=== PATIENT | male | born 1950 | race Caucasian/White ===

== ENCOUNTER 2022-05-23 00:41 | Emergency (ER) | payer OTHER, SELFPAY ==
[2022-05-23] VITALS (19 sets, daily range): BP systolic 164–226; BP diastolic 80–107; PULSE 45–55; TEMP 36.9; O2SAT 94–100; BMI 34.9
--- NOTE | 2022-05-23 01:03 | ED.GENADULT ---
HPI - General Adult General Chief complaint: Back Pain/Injury Stated complaint: KIDNEY STONE Time Seen by Provider: 05/23/22 00:47 Source: patient Mode of arrival: Ambulatory Limitations: no limitations History of Present Illness HPI narrative: Patient is a 71-year-old male who has had multiple kidney stones in the past who is here for evaluation of right-sided flank pain that he states is consistent with prior stone. He has had to have some sort of urologic intervention each time that he has had a stone in the past. His last on his approximately 9 years ago. His symptoms started within the past couple hours. No fevers. No urinary symptoms. No rashes. Pain not changed with palpation. No change in bowel habits. Related Data Previous Rx's Medication Instructions Recorded hydrocodone 5 mg-acetaminophen 325 1 tab PO Q4-6H PRN pain #14 tabs 05/23/22 mg tablet ondansetron 4 mg disintegrating 4 mg PO Q6H PRN nausea and 05/23/22 tablet vomiting #14 tabs tamsulosin 0.4 mg capsule (Flomax) 0.4 mg PO DAILY #14 caps 05/23/22 Allergies Allergy/AdvReac Type Severity Reaction Status Date / Time bee venom protein (honey bee) Allergy Verified 05/23/22 01:36 Review of Systems Constitutional Constitutional: Denies fever(s) Gastrointestinal Gastrointestinal: Reports system reviewed and no additional complaints, except as documented Genitourinary Genitourinary: Reports system reviewed and no additional complaints, except as documented Musculoskeletal Musculoskeletal: Reports system reviewed and no additional complaints, except as documented Integumentary/Breasts Skin/Breast: Reports system reviewed and no additional complaints, except as documented Hematologic/Lymphatic On Anticoagulants: No Patient History Medical History Kidney stones Social History Smoking Status: Former smoker Exam Initial Vital Signs Initial Vital Signs: Vital Signs Pulse Rate 52 L 05/23/22 00:51 Pulse Oximetry 99 05/23/22 00:51 HENMT Head: normal to inspection and normocephalic Resp Effort & Inspection: normal respiratory effort Cardio Rate: regular rate GI Inspection: normal to inspection Palpation: soft and No tender Back/Spine/Pelvis Back: No CVA tenderness Skin General: no rashes or lesions noted Neuro General: patient alert, patient awake and moves all extremities Extrem General: capillary refill normal Course Orders Ordered: ED Orders 05/23/22 01:00 Basic Metabolic Panel Stat Complete Blood Count AUTO DIFF Stat 05/23/22 02:20 CT kidney ureter bladder (KUB) Stat Discontinued Medications Hydrocodone Bitart/Acetaminophen (Hydrocodone/Acet 5/325 Prepack) 1 bottle MISC SEEINSTR ONE Stop: 05/23/22 04:37 Hydromorphone HCl (Hydromorphone 1 Mg Inj) 1 mg IV NOW ONE Stop: 05/23/22 01:04 Last Admin: 05/23/22 01:12 Dose: 1 mg Documented By: NR Ketorolac Tromethamine (Ketorolac 30 Mg/Ml Vial) 30 mg IV NOW ONE Stop: 05/23/22 01:04 Last Admin: 05/23/22 01:11 Dose: 30 mg Documented By: STERLING Ondansetron HCl (Ondansetron 4 Mg/2 Ml Inj) 4 mg IV NOW ONE Stop: 05/23/22 01:17 Last Admin: 05/23/22 01:24 Dose: 4 mg Documented By: STERLING Ondansetron HCl (Ondansetron 4 Mg Odt Prepack) 1 bottle MISC SEEINSTR ONE Stop: 05/23/22 04:37 Tamsulosin HCl (Tamsulosin 0.4 Mg Capsule) 0.4 mg PO NOW ONE Stop: 05/23/22 04:36 Vital Signs Vital signs: Vital Signs - 8 hr 05/23/22 00:51 05/23/22 00:54 05/23/22 00:54 Temperature Pulse Rate 52 L 52 L Blood Pressure 226/107 H Pulse Oximetry 99 99 Oxygen Delivery Method Oxygen Flow Rate 05/23/22 01:00 05/23/22 01:00 05/23/22 01:25 Temperature Pulse Rate 55 L Blood Pressure 213/99 H 197/102 H Pulse Oximetry 99 Oxygen Delivery Method Oxygen Flow Rate 05/23/22 01:25 05/23/22 01:30 05/23/22 01:30 Temperature Pulse Rate 47 L 46 L Blood Pressure 195/93 H Pulse Oximetry 95 97 Oxygen Delivery Method Nasal Cannula Oxygen Flow Rate 2 05/23/22 02:00 05/23/22 02:01 05/23/22 02:01 Temperature Pulse Rate 51 L 45 L Blood Pressure 189/86 H Pulse Oximetry 95 97 Oxygen Delivery Method Oxygen Flow Rate 05/23/22 02:30 05/23/22 02:31 05/23/22 02:31 Temperature Pulse Rate 48 L 45 L Blood Pressure 179/86 H Pulse Oximetry 98 95 Oxygen Delivery Method Oxygen Flow Rate 05/23/22 02:47 05/23/22 02:47 05/23/22 02:49 Temperature Pulse Rate 48 L Blood Pressure 207/94 H 212/92 H Pulse Oximetry 99 Oxygen Delivery Method Oxygen Flow Rate 05/23/22 02:49 05/23/22 02:51 05/23/22 02:51 Temperature Pulse Rate 48 L 48 L Blood Pressure 200/96 H Pulse Oximetry 98 97 Oxygen Delivery Method Oxygen Flow Rate 05/23/22 03:06 05/23/22 03:00 05/23/22 03:00 Temperature 98.5 F Pulse Rate 46 L Blood Pressure 193/84 H Pulse Oximetry 94 Oxygen Delivery Method Oxygen Flow Rate 05/23/22 03:30 05/23/22 03:31 05/23/22 03:31 Temperature Pulse Rate 47 L 48 L Blood Pressure 168/80 H Pulse Oximetry 100 100 Oxygen Delivery Method Nasal Cannula Nasal Cannula Oxygen Flow Rate 2 2 05/23/22 04:00 05/23/22 04:00 Temperature Pulse Rate 47 L Blood Pressure 181/88 H Pulse Oximetry 100 Oxygen Delivery Method Oxygen Flow Rate Medical Decision Making Lab Data Lab results reviewed: Yes I reviewed the patient's lab results. Result diagrams: 05/23/22 01:00 05/23/22 01:00 Labs: Lab Results 05/23/22 05/23/22 Range/Units 01:00 01:00 WBC 10.0 (4.5-11.0) X10^3/uL RBC 4.95 (4.5-5.9) X10^6/uL Hgb 15.4 (13.5-17.5) g/dL Hct 45.2 (41-53) % MCV 91.4 (80-100) fL MCH 31.1 (26-34) PG MCHC 34.0 (30-36) % RDW 13.1 (11.6-14.8) % Plt Count 209 (150-400) X10^3/uL Neut % (Auto) 53.3 (50-75) % Lymph % (Auto) 33.8 (25-40) % Stephens % (Auto) 8.2 (3-14) % Eos % (Auto) 3.9 (2-4) % Baso % (Auto) 0.8 (0-2) % Neut # (Auto) 5300 (4641-2204) /uL Lymph # (Auto) 3400 (4275-1183) /uL Stephens # (Auto) 800 (0-900) /uL Eos # (Auto) 400 (0-450) /uL Baso # (Auto) 100 (0-100) /uL Sodium 138 (137-145) mmol/L Potassium 4.3 (3.4-5.1) mmol/L Chloride 105 (98-107) mmol/L Carbon Dioxide 23 (22-32) mmol/L BUN 20 (9-20) mg/dL Creatinine 1.08 (0.66-1.25) mg/dL Estimated GFR > 60 (>60) mL/min BUN/Creatinine Ratio 18.5 (6-22) Glucose 108 (80-110) mg/dL Calcium 8.8 (8.4-10.2) mg/dL Urine Dip Bedside Urine Glucose Negative Bedside Urine Bilirubin - Negative Bedside Urine Ketone - Negative Urine Specific [place] 1.03 Bedside Urine Occult Blood - Negative Bedside Urine pH 6 Bedside Urine Protein - Negative Bedside Urine Urobilinogen - Negative Bedside Urine Nitrite - Negative Bedside Urine Leukocytes - Negative Esterase Point of care testing: Urine Dip Bedside Urine Glucose Negative Bedside Urine Bilirubin - Negative Bedside Urine Ketone - Negative Urine Specific [place] 1.03 Bedside Urine Occult Blood - Negative Bedside Urine pH 6 Bedside Urine Protein - Negative Bedside Urine Urobilinogen - Negative Bedside Urine Nitrite - Negative Bedside Urine Leukocytes - Negative Esterase Imaging Data CT scan - abdomen/pelvis: Radiologist's Impression: Moderate right hydronephrosis with obstructing proximal ureteral calculus measuring 8 mm Additional nonobstructing right staghorn calculus MDM Narrative Medical decision making narrative: No leukocytosis. Afebrile. Not tachycardic. Pain resolved with medications. Urinalysis has blood but no signs of urinary tract infection. Normal kidney function. CT scan does show large proximal ureteral calculus which does explain the symptoms he is having. Given his normal labs and no signs of infection in pain control will discharge home with Flomax and pain medication to see if he passes the stone on his own however he was given information to follow-up with urology. He was given return precautions. Patient also had periods of hypertension however this improve. He was instructed to follow-up with his primary doctor regarding this. Patient did spend an extended amount of time in the emergency department because after the pain medication when he would fall asleep. Become hypoxic. This was improved with oxygen by nasal cannula. This eventually resolved in the pain medication started to wear off. Patient expressed understanding and agreement with this plan. Discharge Plan Departure Patient Disposition: Home Clinical Impression: Renal colic Instructions: Kidney Stones -- Adult Prescriptions: New tamsulosin [Flomax] 0.4 mg capsule 0.4 mg PO DAILY Qty: 14 0RF hydrocodone-acetaminophen 5-325 mg tablet 1 tab PO Q4-6H PRN (Reason: pain) Qty: 14 0RF ondansetron 4 mg tablet,disintegrating 4 mg PO Q6H PRN (Reason: nausea and vomiting) Qty: 14 0RF Referrals: Niles Bellamy MD [Physician] -
[2022-05-23] MEDS: KETOROLAC 30 MG/ML VIAL IV (01:11)
[2022-05-23 01:12] LABS: Add Manual Diff / Slide Review NO; Basophils Absolute Auto 100 /uL (0-100); Basophils Percent Auto 0.8 % (0-2); Eosinophils Absolute Auto 400 /uL (0-450); Eosinophils Percent Auto 3.9 % (2-4); Hematocrit 45.2 % (41-53); Hemoglobin 15.4 g/dL (13.5-17.5); Lymphocytes Absolute Auto 3400 /uL (1100-4500); Lymphocytes Percent Auto 33.8 % (25-40); Mean Corpuscular Hemoglobin 31.1 PG (26-34); Mean Corpuscular Volume 91.4 fL (80-100); Monocytes Absolute Auto 800 /uL (0-900); Monocytes Percent Auto 8.2 % (3-14); Neutrophils Absolute Auto 5300 /uL (1500-7000); Neutrophils Percent Auto 53.3 % (50-75); Platelet Count 209 X10^3/uL (150-400); Red Blood Cell Count 4.95 X10^6/uL (4.5-5.9); Red Cell Distribution Width 13.1 % (11.6-14.8)
[2022-05-23] MEDS: HYDROMORPHONE 1 MG INJ IV (01:12)
[2022-05-23 01:18] LABS: BUN Creatinine Ratio 18.5 (6-22); Blood Urea Nitrogen 20 mg/dL (9-20); Calcium 8.8 mg/dL (8.4-10.2); Carbon Dioxide 23 mmol/L (22-32); Chloride 105 mmol/L (98-107); Estimated Glomerular Filt Rate > 60 mL/min (>60); Glucose 108 mg/dL (80-110); HEMOLYSIS < 15 (0-50); Potassium 4.3 mmol/L (3.4-5.1); Sodium 138 mmol/L (137-145)
[2022-05-23] MEDS: ONDANSETRON 4 MG/2 ML INJ IV (01:24)
--- NOTE | 2022-05-23 02:20 | DI.CT.S_ITS ---
PROCEDURE: CT KIDNEY URETER BLADDER (KUB) INDICATIONS: R side flank pain eval for stone TECHNIQUE: Axial sections were acquired from the lung bases to the pubic symphysis. Coronal and sagittal reformats were performed. For radiation dose reduction, the following was used: automated exposure control, adjustment of mA and/or kV according to patient size. COMPARISON: [facility], CT, KUB - CT (PNL), 01/06/2014, 13:47. FINDINGS: Image quality: Excellent. Lung bases: Unremarkable. Small hiatal hernia. Heart: Normal size. Mild coronary artery calcification. URINARY: Right Kidney: A 6 mm stone is seen at the right ureteropelvic junction demonstrating CT density 9064 HU. There is mild right hydronephrosis. A 10 x 16 mm nonobstructive stone in the superior pole of the right kidney demonstrating CT density 893 HU. Right Ureter: No stones or hydroureter. Left Kidney: No stones or hydronephrosis. Left Ureter: No stones or hydroureter. Bladder: Normal wall thickness. No stones. ABDOMEN: Liver: Normal size. Hepatic steatosis. Gallbladder: Unremarkable. Biliary ducts: Unremarkable. Pancreas: Unremarkable. Spleen: Unremarkable. Adrenal Glands: Unremarkable. Stomach and Bowel: Stomach, small bowel loops, and colon are normal in caliber. Diverticulosis. No diverticulitis. Peritoneum: No abnormal intraperitoneal fluid. No free air. Ventral Wall: No hernia. Abdominal Nodes: No enlarged retroperitoneal or mesenteric lymph nodes. Vessels: Aorta and inferior vena cava are normal in size. PELVIS: Pelvic Organs: Unremarkable. Pelvic Nodes: Unremarkable. Miscellaneous: No inguinal hernias are seen. Bones: Unremarkable. IMPRESSION: 1. There is a 6 mm obstructive stone at the right UPJ causing mild right hydronephrosis. 2. A 10 x 16 mm nonobstructive stone in the superior pole of the right kidney. 3. Diverticulosis without diverticulitis. 4. Hepatic steatosis. No significant discrepancy with the machinist 2nd shift radiology preliminary report. Dictated by: Amando Gonzalez M.D. on 05/23/2022 at 8:03 Approved by: Amando Gonzalez M.D. on 05/23/2022 at 8:10
--- NOTE | 2022-05-23 03:00 | PC.NURSE ---
Provider aware of pt elevated BP.
[2022-05-23] MEDS: ONDANSETRON 4 MG ODT PREPACK 1 BOTTLE MISC (04:45)
[2022-05-23] MEDS: TAMSULOSIN 0.4 MG CAPSULE PO (04:45)
[2022-05-23] MEDS: HYDROCODONE/ACET 5/325 PREPACK 1 BOTTLE MISC (04:45)
== END 2022-05-23 05:00 | disposition home or self-care (01) ==
PROVIDERS: Emergency Provider Emergency Medicine
DX: N23 Unspecified renal colic (principal); Z87.442 Personal history of urinary calculi
CPT/HCPCS: 36415; 74176; 80048; 81003; 85025; 96374; 96375; 99284; J1170; J1885; J2405

== ENCOUNTER → 2022-06-22 08:18 | Outpatient (CLI) | payer OTHER, SELFPAY ==
--- NOTE | 2022-06-22 08:20 | DI.RAD.S_ITS ---
PROCEDURE: XR KUB INDICATIONS: kidney stone TECHNIQUE: One view of the abdomen acquired. COMPARISON: [facility], CT, CT KIDNEY URETER BLADDER (KUB), 05/23/2022, 2:38. [facility], CR, KUB XRAY (1 VIEW ABDOMEN), 01/11/2014, 8:35. FINDINGS: Surgical changes and devices: None. Bowel: Scattered small bowel and colonic gas. No dilated loops of bowel seen. Soft tissues: Right kidney superior pole calculus measuring 1.2 cm. Calculus near the UPJ measuring 0.5 cm. The stones appear unchanged compared to CT KUB 05/23/2022. No suspicious abdominal calcifications. Visualized solid organ contours appear normal in size. Bones: No suspicious bony lesions. IMPRESSION: Right Kidney stones appears stable. Calculus at the right UPJ measuring 0.5 cm. Consider further evaluation with CT KUB or renal ultrasound to evaluate for worsening hydronephrosis. Dictated by: Parminder Garduno M.D. on 06/22/2022 at 9:44 Approved by: Parminder Garduno M.D. on 06/22/2022 at 9:46
[2022-06-22 10:47] LABS: Prostate Specific Antigen 0.254 ng/mL (0.10-4.00)
== END ==
PROVIDERS: Referring Provider Specialist; Visit Provider Specialist
DX: N20.2 Calculus of kidney with calculus of ureter (principal)
CPT/HCPCS: 36415; 74018; 84153

== ENCOUNTER → 2022-07-18 13:55 | Outpatient (CLI) | payer OTHER, SELFPAY ==
[2022-07-18 14:26] LABS: COVID19 -Nasal RAPID Negative (Negative)
== END ==
PROVIDERS: Visit Provider Specialist
DX: Z20.822 Contact with and (suspected) exposure to COVID-19 (principal)
CPT/HCPCS: 87635; C9803

== ENCOUNTER 2022-07-20 07:59 | Day surgery (SDC) | payer OTHER, SELFPAY ==
[2022-07-17 14:54] VITALS: BMI 33.9
[2022-07-20] VITALS (12 sets, daily range): BP systolic 103–168; BP diastolic 46–89; PULSE 44–62; RESP 10–20; TEMP 36.4–36.7; O2SAT 97–100; BMI 33.9
--- NOTE | 2022-07-20 | DI.RAD.S_ITS ---
PROCEDURE: XR KUB INDICATIONS: Right nephrolithiasis TECHNIQUE: One view of the abdomen acquired. COMPARISON: [facility], , XR KUB, 06/22/2022, 8:29. FINDINGS: Surgical changes and devices: None. Bowel: Bowel gas pattern is normal. Soft tissues: Stable appearance of 1.2 cm calcification projecting over the upper pole of the right renal shadow as well as 5 mm calcification projecting near the expected location of the right renal pelvis. No new calcifications noted. Visualized solid organ contours appear normal in size. Bones: No suspicious bony lesions. IMPRESSION: Stable radiographic appearance of 1.2 cm right upper pole renal stone as well as 5 mm calculus near the expected location of the right renal pelvis. Dictated by: Javi Key M.D. on 07/20/2022 at 11:26 Approved by: Javi Key M.D. on 07/20/2022 at 11:29
--- NOTE | 2022-07-20 08:18 | SUR.PREOP ---
0815-off unit to xray for KUB
[2022-07-20] MEDS: LACTATED RINGERS 1,000 ML 42 ML IV (08:33)
--- NOTE | 2022-07-20 08:47 | PM.PREOP ---
Pre-operative Note COVID-19 Criteria for continued procedure: Expected advancement of disease process, Possibility delay results in more complex future surgery or treatment, Deterioration of the patient's condition or overall health, Delay expected to result in less-positive ultimate med/surg outcome and Non-surgical alternatives not available or appropriate per current SOC Interval Note History & Physical reviewed/Exam performed by Physician: Yes Changes to H&P: No
[2022-07-20] MEDS: CEFAZOLIN 2 GM/100 ML PREMIX 100 ML IV (09:07)
--- NOTE | 2022-07-20 09:24 | SUR.OPER ---
Lithotomy on padded litotripsy frame bed, head on pillow, arms secured and gel padded at side at <90 degrees abduction. Legs secured in padded stirrups.
--- NOTE | 2022-07-20 10:02 | P.OP_ITS ---
Operative Date/Time/Diagnoses Date of procedure: 07/20/22 Time of procedure: 09:50 Pre-op diagnosis: 1. 6 mm right ureteropelvic junction calculus. 2. Intractable right renal colic. 3. 10 x 16 mm right upper pole renal calculus. Post-op diagnosis: same Procedure & Clinicians Procedure: 1. Cystoscopy/placement right ureteral stent (6 [place] by 22-32 cm multi- length). 2. Right extracorporeal shockwave lithotripsy (maximal power level 7.0 x1 1800 shocks). Same procedure as scheduled: Yes Indications: 1. 6 mm right ureteropelvic junction calculus. 2. Intractable right renal colic. 3. 10 x 16 mm right renal calculus. Surgeon: Niles Bellamy Click Yes if Unassisted: Yes Anesthesia Type: General Operative Notes Findings: 1. Urethra-relatively narrow caliber throughout the length with snug passage of 22 [place]anian panendoscope. No isolated stricture or lesion. 2. External sphincter-coapted with normal overlying urothelium. 3. Prostate-4 cm length with moderate lobe hyperplasia. 4. Bladder-1+ trabeculation. Normal ureteral orifices bilaterally. No evidence of stone, tumor, or diverticulum. 5. Preoperative KUB has demonstrated interval retrograde migration of the right ureteropelvic junction calculus into the right lower pole collecting system. The 10 x 16 mm right upper pole calculus remains unchanged in position compared to previous imaging. Closure Type: not applicable Specimen(s): none sent Applied: other (Six Tanzanian times 22-32 cm multi-length stent.) Estimated Blood Loss (mL): 0 Blood products transfused: none Procedure in detail: Patient was positioned supine was administered general anesthesia. He was then repositioned in semi lithotomy and the lower abdomen, genitalia, and groin were then prepped and draped in sterile fashion. The 22 [place] panendoscope was then passed lower urinary tract with the findings as described above. A 0.35 hybrid guidewire was then selected and advanced through the panendoscope advanced into the right collecting system under direct fluoroscopic guidance. Next, a 6 [place] by 22-32 cm multi-length stent was requested in was then advanced over the hybrid guidewire under direct and fluoroscopic guidance with satisfactory positioning in the right collecting system. NO RETRIEVAL LINE WAS LEFT ATTACHED. The bladder contents were then drained and the panendoscope was removed. Next, the 6 mm index calculus was then localized in the X, Y, and Z plane. Lithotripsy was then commenced at minimal power level and continued for 200 shocks at which point a 2 minute pause was conducted. Lithotripsy was then restarted and the power level was gradually increased to a maximum 7.0. The stone and its fragments were relocalized numerous times throughout the case. At 1800 shocks there was excellent radiographic evidence of stone comminution. Intraoperative decision to not begin fragmentation of the right upper calculus was made at that time. The patient was then repositioned in supine, was awakened, and then was transferred to [facility] for transport to PACU in stable condition. Complications: none Post-operative Condition: stable Disposition: PACU Plan for aftercare: Discharge home.
[2022-07-20] MEDS: FUROSEMIDE 20 MG/2 ML VIAL IV (10:17)
--- NOTE | 2022-07-20 10:21 | SUR.PHASEI ---
1015: Report received from QUITA Valenzuela
[2022-07-20] MEDS: ACETAMINOPHEN 325 MG TABLET 975 MG PO (11:04)
[2022-07-20] MEDS: OXYCODONE IR 5 MG TABLET PO (11:05)
[2022-07-20] MEDS: hydrOXYzine pamoate 25 MG CAPSULE PO (11:05)
[2022-07-20] MEDS: fentaNYL 100 MCG/2 ML INJ IV (11:28)
== END 2022-07-20 12:24 | disposition home or self-care (01) ==
PROVIDERS: Referring Provider Specialist; Visit Provider Specialist
PROC: (CPT 50590; principal; 2022-07-20 09:15)
PROC: (CPT 50590; 2022-07-20 09:15)
DX: N20.2 Calculus of kidney with calculus of ureter (principal)
CPT/HCPCS: 50590; 52332; 74018; 82962; J0690; J1100; J1940; J2250; J2405; J2704; J3010

== ENCOUNTER → 2022-07-31 07:58 | Outpatient (CLI) | payer OTHER, SELFPAY ==
--- NOTE | 2022-07-31 08:00 | DI.RAD.S_ITS ---
PROCEDURE: XR KUB INDICATIONS: Kidney stone TECHNIQUE: One view of the abdomen acquired. COMPARISON: [facility], CT, CT KIDNEY URETER BLADDER (KUB), 05/23/2022, 2:38. [facility], CR, XR KUB, 07/20/2022, 8:13. [facility], CR, XR KUB, 06/22/2022, 8:29. FINDINGS: Surgical changes and devices: Right double-J ureteral stent extending from the right renal pelvis to the midline pelvis. Bowel: Bowel gas pattern is normal. Soft tissues: Right kidney stone measuring 1.1 cm at the upper pole adjacent to the right ureteral stent. The previously seen 2nd stone at the inferior pole of the right kidney is no longer present. The right kidney appears enlarged. No suspicious abdominal calcifications. Bones: No suspicious bony lesions. IMPRESSION: Right kidney appears enlarged. Double-J right ureteral stent is now present. The previously seen smaller right kidney stone is no longer identified. Right kidney stone measuring 1.[address] abdomen pelvis with IV contrast for further evaluation if there is any concern for perinephric hematoma. Comment: Findings were discussed with Shannon in the office of Dr. keller at time of dictation. Dictated by: Parminder Garduno M.D. on 07/31/2022 at 9:43 Approved by: Parminder Garduno M.D. on 07/31/2022 at 10:10
== END ==
PROVIDERS: Referring Provider Specialist; Visit Provider Specialist
DX: N20.0 Calculus of kidney (principal); Z87.442 Personal history of urinary calculi; N20.1 Calculus of ureter
CPT/HCPCS: 74018

== ENCOUNTER → 2022-08-01 13:40 | Outpatient (CLI) | payer OTHER, SELFPAY ==
--- NOTE | 2022-08-01 13:42 | DI.CT.S_ITS ---
PROCEDURE: CT KIDNEY URETER BLADDER (KUB) INDICATIONS: Abnormal X-RAY TECHNIQUE: Axial sections were acquired from the lung bases to the pubic symphysis. Coronal and sagittal reformats were performed. For radiation dose reduction, the following was used: automated exposure control, adjustment of mA and/or kV according to patient size. COMPARISON: [facility], CR, XR KUB, 07/20/2022, 8:13. [facility] With [facility], CT, CT KIDNEY URETER BLADDER (KUB), 05/23/2022, 2:38. M[facility]ed With [facility], CR, XR KUB, 07/31/2022, 8:04. FINDINGS: Image quality: Excellent. Lung bases: Unremarkable. Heart: No significant findings. URINARY: Right Kidney: The right kidney is markedly enlarged and has a heterogeneous appearance suggesting a large perinephric hematoma. There is a moderate amount of right perinephric fat stranding which extends down the right pericolic gutter. Differentiation between the renal parenchyma and the perinephric hematoma is difficult on this noncontrast study. However, subtle high-density foci visualized within the posterior aspect of the midpole raise the suspicion for ongoing hemorrhage (series 2/image 45). No hydronephrosis. A nonobstructing staghorn calculus is present within the upper pole which measures 1.4 cm in diameter and approximately 630 Hounsfield units in density. There is a double-J ureteral stent which appears appropriately placed in the right renal pelvis. Right Ureter: The double-J stent extends down the ureter which is nondilated. There is mild right perinephric fat stranding. The distal aspect of the stent is placed within the bladder is expected. Left Kidney: The left kidney demonstrates normal size. No hydronephrosis or nephrolithiasis. Left Ureter: No hydroureter. Bladder: Normal wall thickness. No stones. ABDOMEN: Liver: Unremarkable. Gallbladder: Mildly contracted. Biliary ducts: Unremarkable. Pancreas: Unremarkable. Spleen: Unremarkable. Adrenal Glands: Unremarkable. Stomach and Bowel: Stomach, small bowel loops, and colon are unremarkable. The appendix is not visualized. There are scattered sigmoid diverticula. No evidence for diverticulitis. Peritoneum: No abnormal intraperitoneal fluid. No free air. Ventral Wall: No hernia. Abdominal Nodes: No enlarged retroperitoneal or mesenteric lymph nodes. Vessels: Aorta and inferior vena cava are normal in size. There are scattered atheromatous calcifications throughout the aorta and iliac arteries bilaterally. PELVIS: Pelvic Organs: Unremarkable. Pelvic Nodes: Unremarkable. Miscellaneous: There are small bilateral fat containing inguinal hernias. Bones: Unremarkable. IMPRESSION: 1. Findings most consistent with large perinephric hematoma. Focal high density region within the posterior aspect of the hematoma raises the suspicion for continued extravasation. 2. Nonobstructive right nephrolithiasis. 3. Perinephric fat stranding and fluid tracking along the paracolic gutter suggesting some extracapsular retroperitoneal hemorrhage. 4. Diverticulosis. No acute diverticulitis. These findings were discussed with Dr. Bellamy at 2:45 p.m. On August 01, 2022. Dictated by: Shantel Muñoz M.D. on 08/01/2022 at 14:34 Approved by: Shantel Muñoz M.D. on 08/01/2022 at 14:45
[2022-08-01 16:10] LABS: Hemoglobin 11.3 g/dL (13.5-17.5)
== END ==
PROVIDERS: Referring Provider Specialist; Visit Provider Specialist
DX: N20.2 Calculus of kidney with calculus of ureter (principal); K57.30 Diverticulosis of large intestine without perforation or abscess without bleeding; S37.019A Minor contusion of unspecified kidney, initial encounter; Z87.442 Personal history of urinary calculi
CPT/HCPCS: 36415; 74176; 85014; 85018

== ENCOUNTER → 2022-08-06 09:35 | Outpatient (CLI) | payer OTHER, SELFPAY ==
--- NOTE | 2022-08-06 09:36 | DI.CT.S_ITS ---
PROCEDURE: CT KIDNEY URETER BLADDER (KUB) INDICATIONS: Perinephric hematoma TECHNIQUE: Axial sections were acquired from the lung bases to the pubic symphysis. Coronal and sagittal reformats were performed. For radiation dose reduction, the following was used: automated exposure control, adjustment of mA and/or kV according to patient size. COMPARISON: [facility], CT, CT KIDNEY URETER BLADDER (KUB), 08/01/2022, 14:01. FINDINGS: Image quality: Excellent. Lung bases: Unremarkable. Heart: No significant findings. URINARY: Right Kidney: Large right perinephric hematoma is redemonstrated and appears similar in size to the comparison CT dated August 01, 2022. Nonobstructing calculi are redemonstrated at the upper pole and lower pole of the right kidney. Right double-J ureteral stent is unchanged. No hydronephrosis. Right Ureter: Right ureter is decompressed. Left Kidney: No stones or hydronephrosis. Left Ureter: No hydroureter. Bladder: Normal wall thickness. No stones. ABDOMEN: Liver: Unremarkable. Gallbladder: Unremarkable. Biliary ducts: Unremarkable. Pancreas: Unremarkable. Spleen: Unremarkable. Adrenal Glands: Unremarkable. Stomach and Bowel: Stomach, small bowel loops, and colon are unremarkable. There are scattered sigmoid diverticula. No evidence for diverticulitis. Peritoneum: Trace fluid is tracking along the right pericolic gutter, similar in extent to the prior study. No pneumoperitoneum. Ventral Wall: No hernia. Abdominal Nodes: No enlarged retroperitoneal or mesenteric lymph nodes. Vessels: Aorta and inferior vena cava are normal in size. There are scattered atheromatous calcifications throughout the aorta and iliac arteries bilaterally. PELVIS: Pelvic Organs: Unremarkable. Pelvic Nodes: Unremarkable. Miscellaneous: There are small bilateral fat containing inguinal hernias. Bones: Unremarkable. IMPRESSION: 1. Stable right perinephric hematoma when compared with the study dated August 01, 2022. 2. Nonobstructing right nephrolithiasis. No hydronephrosis or hydroureter. Double-J ureteral stent unchanged. Dictated by: Shantel Muñoz M.D. on 08/06/2022 at 10:15 Approved by: Shantel Muñoz M.D. on 08/06/2022 at 10:18
[2022-08-06 12:12] LABS: Hematocrit 35.5 % (41-53); Hemoglobin 12.2 g/dL (13.5-17.5)
== END ==
PROVIDERS: Referring Provider Specialist; Visit Provider Specialist
DX: S37.011A Minor contusion of right kidney, initial encounter (principal); N20.0 Calculus of kidney; K57.30 Diverticulosis of large intestine without perforation or abscess without bleeding; Z96.0 Presence of urogenital implants; Z87.442 Personal history of urinary calculi
CPT/HCPCS: 36415; 74176; 85014; 85018

== ENCOUNTER → 2022-08-13 07:51 | Outpatient (CLI) | payer OTHER, SELFPAY ==
[2022-08-13 08:07] LABS: Appearance Urine UA CLEAR; Bilirubin Urine UA NEGATIVE (NEGATIVE); Color Urine UA YELLOW; Glucose Urine UA NEGATIVE (Negative); Ketones Urine UA NEGATIVE (NEGATIVE); Leukocyte Esterase Urine UA 2+ (NEGATIVE); Nitrite Urine UA NEGATIVE (Negative); Occult Blood Urine UA 3+ (Negative); Protein Urine UA 1+ (Negative); Urobilinogen Urine UA 0.2 E.U./dL (0.2)
[2022-08-13 08:14] LABS: Amorphous Sediment Urine 1+; Bacteria Urine Moderate (10-30); Culture Indicated Urine Specimen Cultured; Mucus Urine 1+ (Negative); RBC Urine 5-10/HPF (0-5/HPF); Renal Epithelial Cells Urine 1-5/HPF (0-1/HPF); Squamous Epithelial Cell Urine 5-10 /HPF (0-5/HPF); Transitional Epi Cells Urine 1-5/HPF (0-5/HPF); WBC Urine 5-10/HPF (0-5/HPF)
== END ==
PROVIDERS: Visit Provider Specialist
DX: S37.019A Minor contusion of unspecified kidney, initial encounter; Z87.442 Personal history of urinary calculi; N20.2 Calculus of kidney with calculus of ureter; Z96.0 Presence of urogenital implants
CPT/HCPCS: 52310; 81001; 81002; 87077; 87086; 87186; 99213

== ENCOUNTER → 2022-10-09 10:54 | Outpatient (CLI) | payer OTHER, SELFPAY ==
--- NOTE | 2022-10-09 10:56 | DI.RAD.S_ITS ---
PROCEDURE: XR KUB INDICATIONS: Kidney stone TECHNIQUE: One view of the abdomen acquired. COMPARISON: [facility], CT, CT KIDNEY URETER BLADDER (KUB), 08/06/2022, 10:00. [facility], CR, XR KUB, 07/31/2022, 8:04. FINDINGS: Surgical changes and devices: Interval removal of right ureterovesicular stent. Bowel: Bowel gas pattern is normal. Soft tissues: Calcification overlying the right kidney is unchanged. Visualized solid organ contours appear normal in size. Bones: No suspicious bony lesions. IMPRESSION: Interval removal right ureterovesicular stent with stable calcification overlying the right kidney. Dictated by: Emily Chan M.D. on 10/09/2022 at 11:55 Approved by: Emily Chan M.D. on 10/09/2022 at 11:56
[2022-10-09 12:22] LABS: Calcium 9.5 mg/dL (8.4-10.2); Uric Acid 6.1 mg/dL (3.5-8.5)
[2022-10-11 23:25] LABS: Calcium 9.8 mg/dL (8.6-10.2); Parathyroid Hormone, Intact 33 pg/mL (15-65)
== END ==
PROVIDERS: Referring Provider Specialist; Visit Provider Specialist
DX: N20.0 Calculus of kidney (principal); N20.1 Calculus of ureter; S37.019A Minor contusion of unspecified kidney, initial encounter; Z87.442 Personal history of urinary calculi
CPT/HCPCS: 36415; 74018; 82310; 83970; 84550

== ENCOUNTER → 2023-01-14 08:20 | Outpatient (CLI) | payer OTHER, SELFPAY ==
--- NOTE | 2023-01-14 08:21 | DI.RAD.S_ITS ---
PROCEDURE: XR KUB INDICATIONS: Kidney stone TECHNIQUE: One view of the abdomen acquired. COMPARISON: [facility], CR, XR KUB, 10/09/2022, 10:57. [facility], CR, XR KUB, 07/31/2022, 8:04. FINDINGS: Surgical changes and devices: None. Bowel: Bowel gas pattern is normal. Soft tissues: Stable 1.5 cm right renal stone. Bones: No suspicious bony lesions. IMPRESSION: Stable 1.5 cm right renal stone. Dictated by: Rowdy Smalls M.D. on 01/14/2023 at 11:17 Approved by: Rowdy Smalls M.D. on 01/14/2023 at 11:19
== END ==
PROVIDERS: Referring Provider Specialist; Visit Provider Specialist
DX: N20.0 Calculus of kidney (principal)
CPT/HCPCS: 74018

== ENCOUNTER → 2023-06-24 12:32 | Outpatient (CLI) | payer OTHER, SELFPAY ==
--- NOTE | 2023-06-24 12:33 | DI.RAD.S_ITS ---
PROCEDURE: XR KUB INDICATIONS: kidney stones TECHNIQUE: One view of the abdomen acquired. COMPARISON: [facility], CR, XR KUB, 01/14/2023, 8:20. [facility], CR, XR KUB, 10/09/2022, 10:57. FINDINGS: Redemonstrated 1.3 centimeters stone projecting over the right mid kidney. No definite left renal stones identified. Nonobstructive bowel gas pattern. IMPRESSION: Redemonstrated 1.3 centimeter right renal stone. Dictated by: Ortega Griffin M.D. on 06/24/2023 at 17:37 Approved by: Ortega Griffin M.D. on 06/24/2023 at 17:40
== END ==
PROVIDERS: Referring Provider Specialist; Visit Provider Specialist
DX: N20.0 Calculus of kidney (principal)
CPT/HCPCS: 74018

== ENCOUNTER → 2024-02-03 07:54 | Outpatient (CLI) | payer OTHER, SELFPAY ==
--- NOTE | 2024-02-03 07:56 | DI.RAD.S_ITS ---
PROCEDURE: XR KUB INDICATIONS: calcium oxalate and uric acid stone TECHNIQUE: One view of the abdomen acquired. COMPARISON: [facility], CR, XR KUB, 06/24/2023, 12:40. FINDINGS: Surgical changes and devices: None. Bowel: Bowel gas pattern is normal. Soft tissues: No change in right renal calculus. Visualized solid organ contours appear normal in size. Bones: No suspicious bony lesions. IMPRESSION: No change in right renal calculus. Dictated by: Nenita Clark M.D. on 02/03/2024 at 10:21 Approved by: Nenita Clark M.D. on 02/03/2024 at 10:21
[2024-02-03 09:48] LABS: Prostate Specific Antigen 0.243 ng/mL (0.10-4.00)
== END ==
PROVIDERS: Referring Provider Specialist; Visit Provider Specialist
DX: N20.0 Calculus of kidney (principal); N20.1 Calculus of ureter; R97.20 Elevated prostate specific antigen [PSA]; S37.019A Minor contusion of unspecified kidney, initial encounter
CPT/HCPCS: 36415; 74018; 84153

== ENCOUNTER → 2024-06-10 14:14 | Outpatient (CLI) | payer OTHER, SELFPAY ==
[2024-06-10 14:44] LABS: Hematocrit 43.8 % (41-53)
[2024-06-10 15:12] LABS: BUN Creatinine Ratio 18.6 (6-22); Blood Urea Nitrogen 19 mg/dL (9-20); Calcium 8.7 mg/dL (8.4-10.2); Carbon Dioxide 24 mmol/L (22-32); Chloride 107 mmol/L (98-107); Estimated Glomerular Filt Rate > 60 mL/min (>60); Glucose 82 mg/dL (80-110); HEMOLYSIS < 15 (0-50); Potassium 4.3 mmol/L (3.4-5.1); Sodium 137 mmol/L (137-145)
[2024-06-10 15:49] LABS: Creatinine Urine Random 118.38 mg/dL
[2024-06-10 15:50] LABS: Protein (Total) Urine Random < 5 mg/dL (0-12); Protein Creatinine Ratio Urine 0.04 GRAM/24H
== END ==
LOC: LAB 14:15
PROVIDERS: Referring Provider Student in an Organized Health Care Education/Training Program; Visit Provider Student in an Organized Health Care Education/Training Program
DX: N05.9 Unspecified nephritic syndrome with unspecified morphologic changes (principal); D70.9 Neutropenia, unspecified; D63.1 Anemia in chronic kidney disease; R80.9 Proteinuria, unspecified
CPT/HCPCS: 36415; 80048; 82570; 84156; 85014; 85018

== ENCOUNTER → 2024-09-30 09:21 | Outpatient (CLI) | payer OTHER, SELFPAY ==
[2024-09-30 10:34] LABS: Hematocrit 44.3 % (41-53); Hemoglobin 15.1 g/dL (13.5-17.5)
[2024-09-30 11:26] LABS: BUN Creatinine Ratio 17.4 (6-22); Blood Urea Nitrogen 19 mg/dL (9-20); Calcium 9.5 mg/dL (8.4-10.2); Carbon Dioxide 28 mmol/L (22-32); Chloride 102 mmol/L (98-107); Estimated Glomerular Filt Rate > 60 mL/min (>60); Glucose 91 mg/dL (80-110); HEMOLYSIS < 15 (0-50); Potassium 4.3 mmol/L (3.4-5.1); Sodium 138 mmol/L (137-145)
[2024-09-30 11:37] LABS: Creatinine Urine Random 131.02 mg/dL; Protein (Total) Urine Random 14 mg/dL (0-12)
[2024-10-01 08:36] LABS: Parathyroid Hormone Int 35 pg/mL (15-65)
== END ==
LOC: LAB 09:23
PROVIDERS: Referring Provider Student in an Organized Health Care Education/Training Program; Visit Provider Student in an Organized Health Care Education/Training Program
DX: N05.9 Unspecified nephritic syndrome with unspecified morphologic changes (principal); D70.9 Neutropenia, unspecified; D63.1 Anemia in chronic kidney disease; R80.9 Proteinuria, unspecified; N25.81 Secondary hyperparathyroidism of renal origin
CPT/HCPCS: 36415; 80048; 82570; 83970; 84156; 85014; 85018

== ENCOUNTER 2025-01-25 10:59 | Emergency (ER) | payer OTHER, SELFPAY ==
[2025-01-25 11:23] VITALS: BP 183/87; PULSE 55; RESP 16; TEMP 36.8; O2SAT 99; BMI 33.9
[2025-01-25 11:52] LABS: Appearance Urine UA SL CLOUDY; Bilirubin Urine UA NEGATIVE (NEGATIVE); Color Urine UA YELLOW; Glucose Urine UA NEGATIVE (Negative); Ketones Urine UA NEGATIVE (NEGATIVE); Leukocyte Esterase Urine UA NEGATIVE (NEGATIVE); Nitrite Urine UA NEGATIVE (Negative); Occult Blood Urine UA 3+ (Negative); Protein Urine UA TRACE (Negative); Specific Gravity Urine UA 1.025 (1.000-1.035); Urobilinogen Urine UA 0.2 E.U./dL (0.2)
[2025-01-25 11:53] LABS: Urine Volume 10mL (spun)
[2025-01-25 11:54] LABS: RBC Urine 30-100/HPF (0-5/HPF)
[2025-01-25 11:55] LABS: Bacteria Urine None Seen; Culture Indicated Urine Cult Not Indicated; Squamous Epithelial Cell Urine 1-5 /HPF (0-5/HPF); WBC Urine 0-1/HPF (0-5/HPF)
--- NOTE | 2025-01-25 12:00 | ED_ITS ---
HPI - Male Genitourinary <Adriana Heller PA-C - Last Filed: 01/25/25 14:04> General Chief complaint: Urogenital-Male Stated complaint: bloon in urine Time Seen by Provider: 01/25/25 11:48 Source: patient Mode of arrival: Ambulatory History of Present Illness HPI Narrative: 74-year-old male with past medical history nephrolithiasis, BPH with urinary obstruction/LUTS presents to the ED with 1 day of hematuria, right-sided flank pain. Patient states that he has had 3-4 episodes of hematuria since 2:00 a.m. this morning. Endorses mild discomfort when urinating. Endorses right-sided flank pain. No fever, chills, chest pain, shortness of breath, nausea, vomiting, lightheadedness, dizziness, syncope. Patient does have a history of nephrolithiasis. Patient has had to have interventions such as stenting and lithotripsy in the past. Per a CT abdomen pelvis dated 08/01/2022, patient does have a right-sided nonobstructing staghorn calculus which was present within the upper pole measuring 1.4 cm in diameter and approximately 630 Hounsfield units in density. the right kidney was also markedly enlarged and had a heterogenous appearance suggesting a large perinephric hematoma. Patient is followed by Nephrology, patient last saw technical project coordinator 6 months ago. No imaging was done at that time. Patient has been prescribed tamsulosin and 1 other medicine that he does not know the name off. Patient states that he took the medications for awhile but stopped since he saw no changes. Related Data Previous Rx's Medication Instructions Recorded tamsulosin 0.4 mg capsule 0.4 mg PO ONCE PM #90 caps 03/18/24 Allergies Allergy/AdvReac Type Severity Reaction Status Date / Time bee venom protein (honey bee) Allergy Verified 08/08/23 07:59 Review of Systems <Adriana Heller PA-C - Last Filed: 01/25/25 14:04> Constitutional Constitutional: Denies chills, Denies fatigue, Denies fever(s), Denies frequent falls, Denies lethargy and Denies weakness Eyes Eyes: Denies change in vision, Denies eye discharge, Denies irritation and Denies loss of vision ENT Ears, Nose, Mouth, and Throat: Denies change in voice, Denies dizziness, Denies neck pain, Denies sore throat and Denies throat swelling Cardiovascular Cardiovascular: Denies chest pain, Denies irregular heart rhythm, Denies lightheadedness, Denies palpitations, Denies dyspnea, Denies dyspnea on exertion and Denies orthopnea Respiratory Respiratory: Denies cough, Denies dyspnea, Denies dyspnea on exertion and Denies wheezing Gastrointestinal Gastrointestinal: Denies abdominal pain, Denies change in bowel habits, Denies diarrhea, Denies nausea and Denies vomiting Genitourinary Genitourinary: Reports hematuria and Reports dysuria Comments: right-sided flank pain Musculoskeletal Musculoskeletal: Denies neck pain and Denies numbness Integumentary/Breasts Skin/Breast: Denies pruritus, Denies erythema, Denies rash and Denies wounds Neurologic Neurologic: Denies behavioral changes, Denies confusion, Denies dizziness, Denies frequent falls, Denies loss of vision, Denies numbness and Denies weakness Psychiatric Psychiatric: Denies anxiety, Denies behavioral changes, Denies confusion, Denies depression, Denies homicidal ideation and Denies suicidal ideation Endocrine Endocrine: Denies fatigue, Denies flushing and Denies palpitations Hematologic/Lymphatic Hematologic/Lymphatic: Denies easy bruising Allergic/Immunologic Allergic/Immunologic: Denies urticaria, Denies throat swelling and Denies wheezing Patient History <Adriana Heller PA-C - Last Filed: 01/25/25 14:04> Medical History BPH w urinary obs/LUTS Renal calculus, right History of kidney stones Surgical History Hx of appendectomy History of urologic surgery Social History household members: spouse Smoking Status: Former smoker alcohol intake: current Smoking Status: Former smoker tobacco type: cigarettes alcohol intake frequency: holidays/special occasions only Exam <Adriana Heller PA-C - Last Filed: 01/25/25 14:04> Narrative Exam Narrative: Const General:?cooperative, healthy appearing and comfortable [facility] Head:?normal to inspection Ears:?hearing grossly normal bilaterally Nose:?external nose normal Face and sinus:?normal facial exam and sinuses nontender Mouth:?oral mucosae normal Throat:?posterior oropharynx normal Eyes General:?appearance normal, both eyes and all related structures Neck Neck:?normal visual inspection and no lymphadenopathy noted Resp Effort & Inspection:?normal respiratory effort Auscultation:?clear to auscultation bilaterally Cardio Rate:?regular rate Rhythm:?regular rhythm GI Abdomen is soft, nondistended, nontender to palpation. There is significant right-sided CVA tenderness. Neuro General:?patient alert, patient awake and patient oriented x3 Initial Vital Signs Initial Vital Signs: Vital Signs Temperature 98.2 F 01/25/25 11:23 Pulse Rate 55 L 01/25/25 11:23 Respiratory Rate 16 01/25/25 11:23 Blood Pressure 183/87 H 01/25/25 11:23 Pulse Oximetry 99 01/25/25 11:23 Oxygen Delivery Method Room Air 01/25/25 11:23 <Wseley Roach MD - Last Filed: 01/25/25 20:45> Initial Vital Signs Initial Vital Signs: Vital Signs Temperature 98.2 F 01/25/25 11:23 Pulse Rate 55 L 01/25/25 11:23 Respiratory Rate 16 01/25/25 11:23 Blood Pressure 183/87 H 01/25/25 11:23 Pulse Oximetry 99 01/25/25 11:23 Oxygen Delivery Method Room Air 01/25/25 11:23 Course <Adriana Heller PA-C - Last Filed: 01/25/25 14:04> Orders Ordered: ED Orders 01/25/25 12:12 CT abdomen pelvis w con Stat 01/25/25 12:50 CBC Auto Diff [Complete Blood Count AUTO DIFF] Stat CMP [Comprehensive Metabolic Panel] Stat Lipase Stat PT [Prothrombin Time INR] Stat PTT Partial Thromboplastin Chuckie Stat Vital Signs Vital signs: Vital Signs - 8 hr 01/25/25 14:00 Temperature 98 F Pulse Rate 81 Respiratory Rate 18 Blood Pressure 167/80 H Pulse Oximetry 97 Oxygen Delivery Method Room Air <Wesley Roach MD - Last Filed: 01/25/25 20:45> Orders Ordered: ED Orders 01/25/25 12:12 CT abdomen pelvis w con Stat 01/25/25 12:50 CBC Auto Diff [Complete Blood Count AUTO DIFF] Stat CMP [Comprehensive Metabolic Panel] Stat Lipase Stat PT [Prothrombin Time INR] Stat PTT Partial Thromboplastin Chuckie Stat Vital Signs Vital signs: Vital Signs - 8 hr 01/25/25 14:00 Temperature 98 F Pulse Rate 81 Respiratory Rate 18 Blood Pressure 167/80 H Pulse Oximetry 97 Oxygen Delivery Method Room Air MDM - Male Genitourinary <Adriana Heller PA-C - Last Filed: 01/25/25 14:04> Lab Data 01/25/25 12:50 01/25/25 12:50 Labs: Lab Results 01/25/25 01/25/25 Range/Units 11:25 12:50 WBC 8.3 (4.5-11.0) X10^3/uL RBC 4.81 (4.5-5.9) X10^6/uL Hgb 15.4 (13.5-17.5) g/dL Hct 44.2 (41-53) % MCV 92.0 (80-100) fL MCH 32.0 (26-34) PG MCHC 34.7 (30-36) % RDW 13.3 (11.6-14.8) % Plt Count 222 (150-400) X10^3/uL Neut % (Auto) 48.3 L (50-75) % Lymph % (Auto) 40.5 H (25-40) % [place] % (Auto) 7.3 (3-14) % Eos % (Auto) 3.0 (2-4) % Baso % (Auto) 0.9 (0-2) % Neut # (Auto) 4000 (3648-2839) /uL Lymph # (Auto) 3400 (0772-1445) /uL [place] # (Auto) 600 (0-900) /uL Eos # (Auto) 200 (0-450) /uL Baso # (Auto) 100 (0-100) /uL PT 10.6 (9.4-12.5) SECONDS INR 0.9 (0.9-1.3) APTT 36 (25.1-36.5) SECONDS Sodium 138 (137-145) mmol/L Potassium 4.6 (3.4-5.1) mmol/L Chloride 105 (98-107) mmol/L Carbon Dioxide 30 (22-32) mmol/L BUN 12 (9-20) mg/dL Creatinine 1.15 (0.66-1.25) mg/dL Estimated GFR > 60 (>60) mL/min BUN/Creatinine Ratio 10.4 (6-22) Glucose 87 (80-110) mg/dL Calcium 9.2 (8.4-10.2) mg/dL Total Bilirubin 0.9 (0.2-1.3) mg/dL AST 31 (17-59) IU/L ALT 31 (<50) IU/L Alkaline Phosphatase 64 (38-126) U/L Total Protein 7.8 (6.3-8.2) g/dL Albumin 4.2 (3.5-5.0) g/dL Globulin 3.6 (1.7-4.1) g/dL Albumin/Globulin Ratio 1.2 (1.0-2.8) Lipase 99 (23-300) U/L Urine Color Yellow Urine Appearance Sl cloudy Urine pH 7.0 (4.5-8.0) Ur Specific [place] 1.025 (1.000-1.035) Urine Protein Trace H (Negative) Urine Glucose (UA) Negative (Negative) g/dL Urine Ketones Negative (NEGATIVE) Urine Occult Blood 3+ H (Negative) Urine Nitrate Negative (Negative) Urine Bilirubin Negative (NEGATIVE) Urine Urobilinogen 0.2 (0.2) E.U./dL Ur Leukocyte Esterase Negative (NEGATIVE) Urine RBC 30-100/hpf H (0-5/HPF) Urine WBC 0-1/hpf (0-5/HPF) Ur Squamous Epith Cells 1-5 /hpf (0-5/HPF) Urine Bacteria None seen (None) Ur Culture Indicated? Cult not indicated Vol Urine Centrifuged 10ml (spun) MDM Narrative Medical decision making narrative: 74-year-old male with past medical history nephrolithiasis, BPH with urinary obstruction/LUTS presents to the ED with 1 day of hematuria, right-sided flank pain. Concern for UTI versus pyelonephritis versus nephrolithiasis versus malignancy versus BPH versus other intra-abdominal pathology versus other. Will obtain labs, UA, CT abdomen pelvis. Patient declines pain medications at this time. Will reassess. Labs within normal limits. H&H is stable UA shows hematuria, negative for UTI. CT abdomen pelvis shows a nonobstructing 1.3 cm right-sided nephrolithiasis. There is an enhancing, polypoid a left-sided bladder mass measuring 2.[address] Alexander from Urology was consulted. He will see him in clinic for cystoscopy and further evaluation. Safe to discharge as long as he is able to completely void. Postvoid residual was measured at 3 mL. Patient is safe for discharge. Discussed findings with patient, And that Dr. Alexander's office will contact him for follow-up. ED return precautions were discussed with patient. Patient verbalized understanding. Medical records reviewed: Yes <Wesley Roach MD - Last Filed: 01/25/25 20:45> Lab Data Labs: Lab Results 01/25/25 01/25/25 Range/Units 11:25 12:50 WBC 8.3 (4.5-11.0) X10^3/uL RBC 4.81 (4.5-5.9) X10^6/uL Hgb 15.4 (13.5-17.5) g/dL Hct 44.2 (41-53) % MCV 92.0 (80-100) fL MCH 32.0 (26-34) PG MCHC 34.7 (30-36) % RDW 13.3 (11.6-14.8) % Plt Count 222 (150-400) X10^3/uL Neut % (Auto) 48.3 L (50-75) % Lymph % (Auto) 40.5 H (25-40) % [place] % (Auto) 7.3 (3-14) % Eos % (Auto) 3.0 (2-4) % Baso % (Auto) 0.9 (0-2) % Neut # (Auto) 4000 (4164-2473) /uL Lymph # (Auto) 3400 (2835-7204) /uL [place] # (Auto) 600 (0-900) /uL Eos # (Auto) 200 (0-450) /uL Baso # (Auto) 100 (0-100) /uL PT 10.6 (9.4-12.5) SECONDS INR 0.9 (0.9-1.3) APTT 36 (25.1-36.5) SECONDS Sodium 138 (137-145) mmol/L Potassium 4.6 (3.4-5.1) mmol/L Chloride 105 (98-107) mmol/L Carbon Dioxide 30 (22-32) mmol/L BUN 12 (9-20) mg/dL Creatinine 1.15 (0.66-1.25) mg/dL Estimated GFR > 60 (>60) mL/min BUN/Creatinine Ratio 10.4 (6-22) Glucose 87 (80-110) mg/dL Calcium 9.2 (8.4-10.2) mg/dL Total Bilirubin 0.9 (0.2-1.3) mg/dL AST 31 (17-59) IU/L ALT 31 (<50) IU/L Alkaline Phosphatase 64 (38-126) U/L Total Protein 7.8 (6.3-8.2) g/dL Albumin 4.2 (3.5-5.0) g/dL Globulin 3.6 (1.7-4.1) g/dL Albumin/Globulin Ratio 1.2 (1.0-2.8) Lipase 99 (23-300) U/L Urine Color Yellow Urine Appearance Sl cloudy Urine pH 7.0 (4.5-8.0) Ur Specific [place] 1.025 (1.000-1.035) Urine Protein Trace H (Negative) Urine Glucose (UA) Negative (Negative) g/dL Urine Ketones Negative (NEGATIVE) Urine Occult Blood 3+ H (Negative) Urine Nitrate Negative (Negative) Urine Bilirubin Negative (NEGATIVE) Urine Urobilinogen 0.2 (0.2) E.U./dL Ur Leukocyte Esterase Negative (NEGATIVE) Urine RBC 30-100/hpf H (0-5/HPF) Urine WBC 0-1/hpf (0-5/HPF) Ur Squamous Epith Cells 1-5 /hpf (0-5/HPF) Urine Bacteria None seen (None) Ur Culture Indicated? Cult not indicated Vol Urine Centrifuged 10ml (spun) Discharge Plan Departure Patient Disposition: Home Clinical Impression: Hematuria Qualifiers: Hematuria type: gross Qualified Code(s): R31.0 - Gross hematuria Instructions: DI for Hematuria Activity Restrictions/Additional Instructions: You were evaluated in the ED today for blood in the urine. The CT scan does show a left-sided bladder mass. We consulted urologist Dr. Alexander, who will call you to schedule you for a cystoscopy and further evaluation. Please continue to monitor your symptoms and return to the ED if your symptoms worsen, or you are unable to urinate. If you do not hear from Urology in the next few days, you may call them at [phone]. Prescriptions: No Action tamsulosin 0.4 mg capsule 0.4 mg PO ONCE PM Qty: 90 3RF Stand Alone Forms: Patient Portal/API/Survey ED Sign-out <Wesley Roach MD - Last Filed: 01/25/25 20:45> Sign Out Provider Sign Out Attestation: I was immediately available in the department for consultation. This documentation has been reviewed and I agree with assessment and plan. Supervised by Wesley Roach MD
--- NOTE | 2025-01-25 12:12 | DI.CT.S_ITS ---
PROCEDURE: CT ABDOMEN PELVIS W CON INDICATIONS: hematuria, R flank pain, hx of nephrolithiasis TECHNIQUE: After the administration of intravenous contrast, axial sections acquired from the lung bases to the pubic symphysis. Coronal and sagittal reformats were performed. For radiation dose reduction, the following was used: automated exposure control, adjustment of mA and/or kV according to patient size. COMPARISON: None. FINDINGS: Image quality: Diagnostic. Lower Chest: No significant findings. Bulky coronary calcifications. ABDOMEN: Liver: No solid mass. Gallbladder: Contracted, without stones. Biliary ducts: No biliary dilation. Pancreas: No ductal dilation. Spleen: Size is within normal limits. Adrenal Glands: No adrenal nodules. Kidneys and Ureters: No hydronephrosis. No solid mass. No complex renal cystic lesion which requires follow up. Nonobstructing 1.3 centimeter right-sided nephrolithiasis. Stomach and Bowel: Normal colonic caliber, without significant wall thickening. Colonic diverticulosis without evidence of diverticulitis. Appendix not visualized. Peritoneum: No abnormal intraperitoneal fluid. No free air. Central mesenteric fat stranding without adenopathy, likely indicating a benign process. Ventral Wall: No significant ventral hernia. Abdominal Nodes: No retroperitoneal or mesenteric adenopathy by size criteria. Vessels: Aorta and inferior vena cava are normal in size. PELVIS: Pelvic Organs: Unremarkable. Bladder: Enhancing, polypoidal left-sided bladder mass measuring 2.1 x 1.7 centimeters, without extension beyond the muscle. Pelvic Nodes: No enlarged lymph nodes. Miscellaneous: No inguinal hernias are seen. Bones: No aggressive osseous abnormality. IMPRESSION: 2.1 x 1.7 centimeter left sided bladder mass. Recommend confirmation with urology referral /cystoscopy. Nonobstructing right-sided nephrolithiasis measuring 1.3 centimeters, without hydronephrosis. Dictated by: Rowdy Smalls M.D. on 01/25/2025 at 13:15 Approved by: Rowdy Smalls M.D. on 01/25/2025 at 13:17
[2025-01-25 13:03] LABS: Add Manual Diff / Slide Review NO; Basophils Absolute Auto 100 /uL (0-100); Basophils Percent Auto 0.9 % (0-2); Eosinophils Absolute Auto 200 /uL (0-450); Hematocrit 44.2 % (41-53); Hemoglobin 15.4 g/dL (13.5-17.5); Lymphocytes Absolute Auto 3400 /uL (1100-4500); Lymphocytes Percent Auto 40.5 % (25-40); Mean Corpuscular HGB Conc 34.7 % (30-36); Monocytes Absolute Auto 600 /uL (0-900); Monocytes Percent Auto 7.3 % (3-14); Neutrophils Absolute Auto 4000 /uL (1500-7000); Neutrophils Percent Auto 48.3 % (50-75); Platelet Count 222 X10^3/uL (150-400); Red Blood Cell Count 4.81 X10^6/uL (4.5-5.9); Red Cell Distribution Width 13.3 % (11.6-14.8); White Blood Cell Count 8.3 X10^3/uL (4.5-11.0)
[2025-01-25 13:13] LABS: INR 0.9 (0.9-1.3); Prothrombin Time 10.6 SECONDS (9.4-12.5)
[2025-01-25 13:16] LABS: Alanine Aminotransferase 31 IU/L (<50); Albumin 4.2 g/dL (3.5-5.0); Albumin Globulin Ratio 1.2 (1.0-2.8); Alkaline Phosphatase 64 U/L (38-126); Aspartate Aminotransferase 31 IU/L (17-59); BUN Creatinine Ratio 10.4 (6-22); Bilirubin Total 0.9 mg/dL (0.2-1.3); Blood Urea Nitrogen 12 mg/dL (9-20); Calcium 9.2 mg/dL (8.4-10.2); Carbon Dioxide 30 mmol/L (22-32); Chloride 105 mmol/L (98-107); Estimated Glomerular Filt Rate > 60 mL/min (>60); Globulin 3.6 g/dL (1.7-4.1); Glucose 87 mg/dL (80-110); HEMOLYSIS < 15 (0-50); Lipase 99 U/L (23-300); PTT Partial Thromboplastin Tim 36 SECONDS (25.1-36.5); Potassium 4.6 mmol/L (3.4-5.1); Sodium 138 mmol/L (137-145); Total Protein 7.8 g/dL (6.3-8.2)
[2025-01-25 14:00] VITALS: BP 167/80; PULSE 81; RESP 18; TEMP 36.6; O2SAT 97
== END 2025-01-25 14:00 | disposition home or self-care (01) ==
PROVIDERS: Emergency Provider Student in an Organized Health Care Education/Training Program
DX: R31.0 Gross hematuria (principal); R10.9 Unspecified abdominal pain; R30.0 Dysuria; Z87.442 Personal history of urinary calculi
CPT/HCPCS: 36415; 51798; 74177; 80053; 81001; 83690; 85025; 85610; 85730; 99283; 99284; Q9967

== ENCOUNTER → 2025-02-04 09:27 | Outpatient (CLI) | payer OTHER, SELFPAY | PROVIDERS: Visit Provider Urology | DX: N40.1 Benign prostatic hyperplasia with lower urinary tract symptoms (principal); N13.8 Other obstructive and reflux uropathy; R31.0 Gross hematuria; N32.89 Other specified disorders of bladder; Z87.442 Personal history of urinary calculi | CPT/HCPCS: 52000; 81002; 87086 ==

== ENCOUNTER → 2025-02-15 16:14 | Outpatient (CLI) | payer OTHER, SELFPAY | PROVIDERS: Visit Provider Urology | DX: N40.1 Benign prostatic hyperplasia with lower urinary tract symptoms (principal); N13.8 Other obstructive and reflux uropathy | CPT/HCPCS: 87077; 87086; 87147; 87186 ==

== ENCOUNTER 2025-02-26 07:52 | Day surgery (SDC) | payer OTHER, SELFPAY ==
[2025-02-22 12:50] VITALS: BMI 33.9
--- NOTE | 2025-02-26 | DI.RAD.S_ITS ---
PROCEDURE: XR ABDOMEN 1V INDICATIONS: left stent placement TECHNIQUE: Single spot intra-operative image acquired by the Urology service. COMPARISON: None. FINDINGS: Partial opacification of the left renal pelvis and proximal aspect of ureteral stent identified. IMPRESSION: Partial visualization of contrast opacified nondilated left renal pelvis and proximal aspect of left ureteral stent. Dictated by: Dexter Duvall M.D. on 02/27/2025 at 1:57 Approved by: Dexter Duvall M.D. on 02/27/2025 at 1:59
--- NOTE | 2025-02-26 | PATH_ITS ---
[facility] Accession Number: [id number] No. of containers..01 Tissue . 01 Material submitted: . bladder - BLADDER TUMOR . 01 Diagnosis: BLADDER TUMOR, TRANSURETHRAL RESECTION: Invasive high-grade papillary urothelial carcinoma. Extensive lamina propria invasion. Lymphovascular invasion is not identified. Muscularis propria: Not identified in the sample submitted. MRV 03/04/2025 1148 Local . 01 Comment: As part of ongoing ict quality assurance engineer, this case is also reviewed by Dr. Ag Syed, who agrees with the interpretation. . 01 Electronically signed: . Irish Garcia MD, Pathologist NPI- [id number] . 01 Gross description: . BLADDER TUMOR: Received in formalin are multiple fragment(s) of hammer, soft tissue measuring 0.1 x 0.1 x 0.1 cm to 1.0 x 0.5 x 0.3 cm submitted entirely in 4 cassette(s) /JACOB 03/01/2025 2218 Local . 01 Pathologist provided ICD-10: C67.9 . 01 CPT . 043435 Specimen Comment: A courtesy copy of this report has been sent to [facility] Pathology Performed at: 01 [facility] [address], [place], [place] [id number] MD Edwin Barney MD Phone: [phone]
[2025-02-26 08:18] VITALS: BP 150/90; PULSE 68; RESP 16; TEMP 36.3; O2SAT 97; BMI 34.2
[2025-02-26] MEDS: LACTATED RINGERS 1,000 ML 42 ML IV (08:21)
--- NOTE | 2025-02-26 08:23 | PM.PREOP ---
Pre-operative Note COVID-19 COVID-19 status: Not tested Interval Note History & Physical reviewed/Exam performed by Physician: Yes Changes to H&P: No
[2025-02-26] MEDS: levoFLOXacin 500 MG/100 ML PIGGYBACK 100 MG IV (08:45)
--- NOTE | 2025-02-26 09:00 | SUR.OPER ---
Lithotomy on padded OR bed, head on pillow, arms secured on padded arm boards at <90 degrees abduction. Legs secured in padded yellow fins stirrups.
[2025-02-26] MEDS: METHYLENE BLUE 50 MG/10 ML VIAL IV (09:27)
[2025-02-26] MEDS: iopamidoL 30 ML VIAL INJ (10:09)
--- NOTE | 2025-02-26 10:28 | P.OP_ITS ---
Operative Date/Time/Diagnoses Pre-op diagnosis: Bladder mass Post-op diagnosis: same Procedure & Clinicians Procedure: Cystoscopy Transurethral resection of bladder tumor Left retrograde ureteropyelogram Left ureteral stent placement Intraoperative interpretation of fluoroscopic images, total time < 1 hour Same procedure as scheduled: Yes Indications: 74 y/o M w/ recent episode of gross hematuria who was noted to have an unremarkable CT IVP and a cystoscopy notable for a 2cm bladder mass immediately lateral to his left ureteral orifice in January of 2025 Surgeon: Kwaku Alexander Click Yes if Unassisted: Yes Anesthesia Type: General Operative Notes Findings: 2cm bladder mass overlying left ureteral orifice, placement of a left ureteral stent Closure Type: not applicable Specimen(s): other (bladder mass) Applied: catheter Estimated Blood Loss (mL): 2 Blood products transfused: none Procedure in detail: Patient was identified in the preoperative holding area and consent confirmed. He was then brought to the operating room where general anesthesia was induced. He was then placed in the low lithotomy position. He was then prepped and draped in the usual sterile fashion. A surgical timeout was conducted and all were in agreement. Access to the bladder was obtained via a 21Fr cystoscope. Complete cystoscopy was then performed using a 30 and 70 degree lens. A 2cm papillary mass was noted overlying his left ureteral orifice. The right ureteral orifice was noted to be orthotopic in nature. No other concerning lesions were appreciated. The cystoscope was then removed and his urethral meatus was serially dilated using [place] sounds from 22Fr to 30Fr. The 26Fr resectoscope with visual obturator was then advanced through his urethra and into his bladder. The working element with Gyrus loop was then assembled and passed through the resectoscope and into the bladder. The mass was then resected to its base. The resection bed was then minimally fulgurated while attempts were made to locate the left ureteral orifice. Methylene blue was given intraoperatively, unfortunately, the left ureteral orifice was never noted to be efflux. After more than 30 minutes of searching, it was finally located. The resectoscope was removed and the cystoscope was readvanced into his urethra and bladder. The left ureteral orifice was then easily cannulated using a 5Fr ureteral catheter over a 0.035 sensor tip ureteral guidewire. The guidewire was removed and a left retrograde ureteropyelogram was performed which noted unremarkable left renal and ureteral architecture. The guidewire was then readvanced through the ureteral catheter and into the left renal pelvis. The ureteral catheter was removed and a 6Fr multi-length JJ ureteral stent was advanced over the guidewire and into the left renal pelvis. Upon removal of the ureteral guidewire, a good curl was noted within the left renal pelvis upon fluoroscopy and visually within the bladder. The cystoscope was then removed and the resectoscope was readvanced into the bladder. The resection bed was then extensively fulgurated. Hemostasis was evaluated at case end and noted to be excellent. The resectoscope was then removed and an 18Fr bailey catheter was easily inserted through his urethra and into his bladder. 10cc of sterile water was utilized for balloon insufflation. Anesthesia was reversed, he was extubated in the OR and transferred to the PACU in stable condition for recovery. Complications: none Post-operative Condition: stable Disposition: PACU Plan for aftercare: Discharge home from PACU. Will return to Urology clinic on 02 March 2025 to have his bailey catheter removed.
[2025-02-26 10:29] VITALS: BP 156/82; PULSE 78; RESP 21; TEMP 36.6; O2SAT 94
[2025-02-26 10:34] VITALS: BP 179/92; PULSE 78; RESP 16; O2SAT 94
[2025-02-26 10:40] VITALS: BP 150/94; PULSE 79; RESP 14; O2SAT 95
[2025-02-26 10:55] VITALS: BP 173/85; PULSE 66; RESP 14; O2SAT 96
[2025-02-26 11:05] VITALS: BP 172/84; PULSE 66; RESP 14; O2SAT 97
== END 2025-02-26 11:41 | disposition home or self-care (01) ==
PROVIDERS: Referring Provider Urology; Visit Provider Urology
PROC: 0TBB8ZZ Excision of Bladder, Via Natural or Artificial Opening Endoscopic (ICD-10-PCS; CPT 52235; principal; 2025-02-26 09:15)
DX: C67.9 Malignant neoplasm of bladder, unspecified (principal)
CPT/HCPCS: 52235; 52351; 74018; 74420; 76000; C2617; J1100; J1956; J2405; J2704; J3010; Q9967; Q9968

== ENCOUNTER → 2025-03-02 15:08 | Outpatient (CLI) | payer OTHER, SELFPAY ==
[2025-03-02 16:08] LABS: Appearance Urine UA CLEAR; Bilirubin Urine UA NEGATIVE (NEGATIVE); Color Urine UA YELLOW; Glucose Urine UA NEGATIVE (Negative); Ketones Urine UA NEGATIVE (NEGATIVE); Leukocyte Esterase Urine UA NEGATIVE (NEGATIVE); Nitrite Urine UA NEGATIVE (Negative); Occult Blood Urine UA 3+ (Negative); Protein Urine UA 3+ (Negative); Specific Gravity Urine UA >=1.030 (1.000-1.035); Urobilinogen Urine UA 0.2 E.U./dL (0.2)
[2025-03-02 16:25] LABS: Bacteria Urine Few (2-10); Culture Indicated Urine Specimen Cultured; RBC Urine 30-100/HPF (0-5/HPF); Squamous Epithelial Cell Urine 1-5 /HPF (0-5/HPF); Transitional Epi Cells Urine 0-1/HPF (0-5/HPF); Urine Volume 10mL (spun); WBC Urine 10-30/HPF (0-5/HPF)
== END ==
PROVIDERS: Visit Provider Urology
DX: N40.1 Benign prostatic hyperplasia with lower urinary tract symptoms (principal); N13.8 Other obstructive and reflux uropathy
CPT/HCPCS: 51798; 81001; 87086

== ENCOUNTER → 2025-03-18 08:20 | Outpatient (CLI) | payer OTHER, SELFPAY | PROVIDERS: Visit Provider Urology | DX: N40.1 Benign prostatic hyperplasia with lower urinary tract symptoms (principal); N13.8 Other obstructive and reflux uropathy | CPT/HCPCS: 87086 ==

== ENCOUNTER 2025-04-02 07:53 | Day surgery (SDC) | payer OTHER, SELFPAY ==
[2025-03-24 08:50] VITALS: BMI 33.2
--- NOTE | 2025-04-02 | PATH_ITS ---
[facility] Accession Number: [id number] No. of containers..02 Tissue . 01 Material submitted: . PART A: bladder - BLADDER MASS PART B: body - DEEP MARGIN . 01 Clinical history: . 5-29 PER MAUREEN, OR VOCATIONAL REHABILITATION SPECIALIST, SITE B IS DEEP MARGIN /RR . 01 Diagnosis: A. BLADDER MASS, EXCISION: Polypoid fragments of urothelial mucosa with acute and chronic inflammation, congestion, and granulation tissue. See comment. . B. DEEP MARGIN: Urothelial mucosa with acute and chronic inflammation, congestion and granulation tissue. Muscularis propria is identified. No dysplasia and no malignancy. MRV 04/12/2025 1423 Local . 01 Comment: A. There is focal mild atypia noted which is favored to be reactive in nature. There is no evidence of malignancy. Muscularis propria is not present in part A. As part of ongoing software quality manager, part A is also reviewed by Dr. Ag Syed, who agrees with the interpretation. . 01 Electronically signed: . Irish Garcia MD, Pathologist NPI- [id number] . 01 Gross description: . A. Received in formalin with two identifiers and bladder mass, are five irregular hammer soft tissue fragments ranging from 0.4 x 0.4 x 0.2 cm to 0.7 x 0.5 x 0.3 cm. The fragments are submitted intact in A1. B. Received in formalin with two identifiers and deep margin, is a single hammer soft tissue fragment, 1.1 x 0.4 x 0.3 cm. The slightly concave surface is inked black while the slightly convex surface is inked orange, and the fragment is submitted intact in B1. ([id number]) /MRV 04/07/2025 2136 Local . 01 Microscopic: . CK20 highlights umbrella cells and p53 is negative for strong and diffuse overexpression. Controls stain appropriately. . * This test was developed and the performance characteristics were validated by [facility]. It has not been cleared or approved by the U.S. Food and Drug Administration. . 01 Pathologist provided ICD-10: Z85.51 . 01 CPT . 951521, 945549, D04767, W40131 Specimen Comment: A courtesy copy of this report has been sent to [facility] Pathology Performed at: [address] [id number] MD Edwin Barney MD Phone: [phone]
[2025-04-02 08:10] VITALS: BP 157/76; PULSE 65; RESP 16; TEMP 36.2; O2SAT 97; BMI 33.2
[2025-04-02] MEDS: LACTATED RINGERS 1,000 ML 21 ML IV (08:19)
[2025-04-02] MEDS: ACETAMINOPHEN IV 1,000 MG/100 ML VIAL 400 MG IV (08:32)
--- NOTE | 2025-04-02 08:38 | PM.PREOP ---
Pre-operative Note COVID-19 COVID-19 status: Not tested Interval Note History & Physical reviewed/Exam performed by Physician: Yes Changes to H&P: No
[2025-04-02] MEDS: CEFAZOLIN 2 GM/100 ML PREMIX 100 ML IV (08:53)
--- NOTE | 2025-04-02 09:04 | SUR.OPER ---
Lithotomy on padded OR bed, head on pillow, arms secured on padded arm boards at <90 degrees abduction. Legs secured in padded yellow fins stirrups.
[2025-04-02 09:42] VITALS: BP 162/86; PULSE 79; RESP 25; TEMP 36.3; O2SAT 93
--- NOTE | 2025-04-02 09:43 | PM.OP.1 ---
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 His mass was overlying his left ureteral orifice which was stented at the conclusion of his procedure. Discussed that per AUA guidelines, he is high-risk and should undergo a repeat TURBT. Surgeon: Kwaku Alexander Click Yes if Unassisted: Yes Anesthesia Type: General Operative Notes Findings: Bullous edema around left ureteral orifice, no overt mass appreciated Closure Type: not applicable Specimen(s): other (bladder mass, deep margin) Estimated Blood Loss (mL): 2 Blood products transfused: none Procedure in detail: Patient was identified in the preoperative holding area and consent confirmed. He was then brought to the operating room where general anesthesia was induced. He was then placed in the low lithotomy position. He was then prepped and draped in the usual sterile fashion. A surgical timeout was conducted and all were in agreement. Access to the bladder was obtained via a 21Fr cystoscope. Complete cystoscopy was then performed using a 30 and 70 degree lens. No concerning masses or lesions were noted. The previously placed left ureteral stent was easily visualized and bullous edema was appreciated around his left ureteral orifice, no overt mass was noted. The cystoscope was then removed and his urethral meatus was serially dilated using Carlos sounds from 22Fr to 30Fr. The 26Fr resectoscope with visual obturator was then advanced through his urethra and into his bladder. The working element with Gyrus loop was then assembled and passed through the resectoscope and into the bladder. The aforementioned bullous edema and area of the original mass was resected and submitted as bladder mass. A deep margin was also taken from this site as well and submitted as separate specimen. The resection bed was then extensively fulgurated. Hemostasis was evaluated at case end and noted to be excellent. His bladder was then drained and his cystoscope was removed. Anesthesia was reversed, he was extubated in the OR and transferred to the PACU in stable condition for recovery. Complications: none Post-operative Condition: stable Disposition: PACU Plan for aftercare: Discharge home from PACU. Will return to Urology clinic to discuss his pathology results as soon as they return.
[2025-04-02 09:49] VITALS: BP 134/71; PULSE 71; RESP 12; O2SAT 96
[2025-04-02 09:53] VITALS: BP 147/80; PULSE 69; RESP 12; O2SAT 96
[2025-04-02] MEDS: PHENAZOPYRIDINE 100 MG TABLET 200 MG PO (09:53)
[2025-04-02 09:57] VITALS: BP 135/76; PULSE 66; RESP 10; O2SAT 95
[2025-04-02 10:05] VITALS: BP 137/80; PULSE 64; RESP 12; TEMP 36.3; O2SAT 94
[2025-04-02] MEDS: OXYBUTYNIN 5 MG TABLET PO (10:21)
== END 2025-04-02 10:37 | disposition home or self-care (01) ==
PROVIDERS: Referring Provider Urology; Visit Provider Urology
PROC: 0TBB8ZZ Excision of Bladder, Via Natural or Artificial Opening Endoscopic (ICD-10-PCS; CPT 52224; principal; 2025-04-02 09:15)
DX: N40.1 Benign prostatic hyperplasia with lower urinary tract symptoms (principal); N13.8 Other obstructive and reflux uropathy; R35.1 Nocturia; Z87.891 Personal history of nicotine dependence; Z87.442 Personal history of urinary calculi
CPT/HCPCS: 52224; J0131; J0690; J2405; J2704; J3010

== ENCOUNTER 2025-05-04 21:21 | Emergency (ER) | payer OTHER, SELFPAY ==
[2025-05-04] VITALS (7 sets, daily range): BP systolic 158–182; BP diastolic 78–95; PULSE 58–73; RESP 18; TEMP 36.6; O2SAT 95–98; BMI 32.8
[2025-05-04 21:59] LABS: Urine Volume 10mL (spun)
[2025-05-04 22:00] LABS: Bacteria Urine Few (2-10); Culture Indicated Urine Specimen Cultured; RBC Urine 1-5/HPF (0-5/HPF); Squamous Epithelial Cell Urine 0-1 /HPF (0-5/HPF); WBC Urine 30-100/HPF (0-5/HPF)
[2025-05-04 22:52] LABS: Add Manual Diff / Slide Review NO; Basophils Absolute Auto 100 /uL (0-100); Eosinophils Absolute Auto 200 /uL (0-450); Hematocrit 38.7 % (41-53); Hemoglobin 13.7 g/dL (13.5-17.5); Lymphocytes Absolute Auto 2800 /uL (1100-4500); Lymphocytes Percent Auto 23.3 % (25-40); Mean Corpuscular HGB Conc 35.5 % (30-36); Mean Corpuscular Hemoglobin 31.8 PG (26-34); Mean Corpuscular Volume 89.7 fL (80-100); Monocytes Absolute Auto 900 /uL (0-900); Monocytes Percent Auto 7.2 % (3-14); Neutrophils Absolute Auto 8000 /uL (1500-7000); Neutrophils Percent Auto 66.5 % (50-75); Platelet Count 288 X10^3/uL (150-400); Red Blood Cell Count 4.31 X10^6/uL (4.5-5.9); Red Cell Distribution Width 12.9 % (11.6-14.8)
--- NOTE | 2025-05-04 22:54 | ED.GENADULT ---
HPI - General Adult General Chief complaint: Urogenital-Male Stated complaint: Back Pain Time Seen by Provider: 05/04/25 22:44 Source: patient Mode of arrival: Ambulatory History of Present Illness HPI narrative: 74-year-old male with history of kidney stones with previous lithotripsy procedures, last lithotripsy 2 years ago by retired urologist Dr. Mojica here at [facility], more recently has diagnosis of bladder cancer, status post bladder stenting and initial tumor excision by local urologist Dr. Alexander, awaiting follow up procedure BCG insertion on 10:00 a.m. here with possible removal of bladder stent at that same procedure. Now complains of 2 weeks duration of intermittent left-sided flank discomfort, worse for the last 4 days. Some nausea without vomiting. No fevers or chills. No diarrhea, no black or red stools. He does not take blood thinner medications. Related Data Home Medications ?Medication ?Instructions ?Recorded ?Confirmed amlodipine 5 mg tablet 5 mg PO DAILY 02/26/25 04/02/25 Previous Rx's ?Medication ?Instructions ?Recorded tamsulosin 0.4 mg capsule 0.4 mg PO ONCE PM #90 caps 03/18/24 levofloxacin 500 mg tablet 500 mg PO DAILY #5 tabs 02/26/25 oxybutynin chloride 5 mg tablet 5 mg PO TID PRN bladder spasms #10 02/26/25 tabs oxycodone 5 mg tablet 5 mg PO Q8H PRN pain (scale score 02/26/25 7-10) #7 tabs cefdinir 300 mg capsule 300 mg PO BID 10 days #14 caps 05/05/25 Allergies Allergy/AdvReac Type Severity Reaction Status Date / Time bee venom protein (honey bee) Allergy Verified 05/04/25 21:25 Patient History Medical History (Updated 05/05/25 @ 01:43 by Wesley Roach MD) HTN (hypertension) BPH w urinary obs/LUTS Renal calculus, right History of kidney stones Surgical History (Updated 03/24/25 @ 09:17 by Ivania Montero RN) H/O transurethral resection of bladder tumor (TURBT) (02/26/25) Hx of appendectomy History of urologic surgery Social History household members: spouse Smoking Status: Former smoker alcohol intake: current Smoking Status: Former smoker tobacco type: cigarettes alcohol intake frequency: holidays/special occasions only Exam Narrative Exam Narrative: GENERAL: Well-developed patient, in mild distress. HEAD: Atraumatic. Normocephalic. EYES: Pupils equal round and reactive. Extraocular motions intact. No scleral icterus. No injection or drainage. ENT: Nose without bleeding, purulent drainage. Throat without erythema, tonsillar hypertrophy or exudate. Airway patent. NECK: Trachea midline. Non tender CARDIOVASCULAR: Regular rate and rhythm without murmurs, gallops, or rubs. RESPIRATORY: Clear to auscultation. Breath sounds equal bilaterally. No wheezes, rales, or rhonchi. GASTROINTESTINAL: Abdomen soft, non-tender, nondistended. EXTREMITIES: No edema or joint tenderness. BACK: Nontender without deformity or crepitance. No flank tenderness. NEURO: AOx3. Motor functions grossly nonfocal. SKIN: No rash or erythema of visible areas Initial Vital Signs Initial Vital Signs: Vital Signs Temperature 98 F 05/04/25 21:25 Pulse Rate 73 05/04/25 21:25 Respiratory Rate 18 05/04/25 21:25 Blood Pressure 158/87 H 05/04/25 21:25 Pulse Oximetry 97 05/04/25 21:25 Oxygen Delivery Method Room Air 05/04/25 21:25 Course Orders Ordered: ED Orders 05/04/25 21:30 Urine Culture Stat Urine Microscopic Stat 05/04/25 22:00 Complete Blood Count AUTO DIFF Stat Comprehensive Metabolic Panel Stat Lipase Stat 05/04/25 23:48 CT abdomen pelvis wo con Stat Ondansetron HCl (Ondansetron 4 Mg/2 Ml Inj) 4 mg IV NOW PRN PRN Reason: Nausea And Vomiting Ondansetron HCl (Ondansetron 4 Mg Odt) 4 mg PO NOW PRN PRN Reason: Nausea And Vomiting Discontinued Medications Cefdinir (Cefdinir 300 Mg Capsule) 300 mg PO NOW ONE Stop: 05/05/25 01:42 Ceftriaxone Sodium 1,000 mg/ (Sodium Chloride) 100 mls @ 200 mls/hr IV NOW ONE Stop: 05/04/25 23:05 Last Infusion: 05/04/25 23:47 Dose: Infused Documented By: Admin: 05/04/25 23:12 Dose: 200 mls/hr Documented By: MAU Ketorolac Tromethamine (Ketorolac 30 Mg/Ml Vial) 15 mg IV NOW ONE Stop: 05/04/25 23:05 Last Admin: 05/04/25 23:12 Dose: 15 mg Documented By: MAU Vital Signs Vital signs: Vital Signs - 8 hr 05/04/25 21:25 05/04/25 21:50 05/04/25 22:00 Temperature 98 F Pulse Rate 73 64 Respiratory Rate 18 Blood Pressure 158/87 H 182/95 H Pulse Oximetry 97 96 Oxygen Delivery Method Room Air 05/04/25 22:00 05/04/25 22:30 05/04/25 22:31 Temperature Pulse Rate 66 62 Respiratory Rate Blood Pressure 170/79 H Pulse Oximetry 97 95 Oxygen Delivery Method 05/04/25 22:31 05/04/25 23:00 05/04/25 23:00 Temperature Pulse Rate 61 65 Respiratory Rate Blood Pressure 165/88 H Pulse Oximetry 95 98 Oxygen Delivery Method Room Air 05/04/25 23:30 05/04/25 23:30 05/05/25 00:00 Temperature Pulse Rate 58 L Respiratory Rate Blood Pressure 164/78 H 166/82 H Pulse Oximetry 97 Oxygen Delivery Method 05/05/25 00:00 05/05/25 00:30 05/05/25 01:00 Temperature Pulse Rate 61 58 L 57 L Respiratory Rate Blood Pressure Pulse Oximetry 97 96 98 Oxygen Delivery Method Medical Decision Making Lab Data Lab results reviewed: Yes I reviewed the patient's lab results. Lab results narrative: White blood cell count 78770, hemoglobin 13.7, platelets adequate. Glucose 110. BUN 18 with creatinine 1.27. Normal serum CO2. Sodium 135 with normal potassium 3.9. Liver functions normal. Lipase normal. Urinalysis with some pyuria and little bacteria, urine culture triggered. 05/04/25 22:00 05/04/25 22:00 Labs: Lab Results 05/04/25 05/04/25 Range/Units 21:30 22:00 WBC 12.0 H (4.5-11.0) X10^3/uL RBC 4.31 L (4.5-5.9) X10^6/uL Hgb 13.7 (13.5-17.5) g/dL Hct 38.7 L (41-53) % MCV 89.7 (80-100) fL MCH 31.8 (26-34) PG MCHC 35.5 (30-36) % RDW 12.9 (11.6-14.8) % Plt Count 288 (150-400) X10^3/uL Neut % (Auto) 66.5 (50-75) % Lymph % (Auto) 23.3 L (25-40) % [place] % (Auto) 7.2 (3-14) % Eos % (Auto) 2.0 (2-4) % Baso % (Auto) 1.0 (0-2) % Neut # (Auto) 8000 H (4892-8230) /uL Lymph # (Auto) 2800 (9917-9205) /uL [place] # (Auto) 900 (0-900) /uL Eos # (Auto) 200 (0-450) /uL Baso # (Auto) 100 (0-100) /uL Sodium 135 L (137-145) mmol/L Potassium 3.9 (3.4-5.1) mmol/L Chloride 104 (98-107) mmol/L Carbon Dioxide 24 (22-32) mmol/L BUN 18 (9-20) mg/dL Creatinine 1.27 H (0.66-1.25) mg/dL Estimated GFR > 60 (>60) mL/min BUN/Creatinine Ratio 14.2 (6-22) Glucose 110 H (70-99) mg/dL Calcium 8.5 (8.4-10.2) mg/dL Total Bilirubin 0.6 (0.2-1.3) mg/dL AST 28 (17-59) IU/L ALT 29 (<50) IU/L Alkaline Phosphatase 80 (38-126) U/L Total Protein 7.4 (6.3-8.2) g/dL Albumin 3.7 (3.5-5.0) g/dL Globulin 3.7 (1.7-4.1) g/dL Albumin/Globulin Ratio 1.0 (1.0-2.8) Lipase 88 (23-300) U/L Urine RBC 1-5/hpf D (0-5/HPF) Urine WBC 30-100/hpf H (0-5/HPF) Ur Squamous Epith Cells 0-1 /hpf (0-5/HPF) Urine Bacteria Few (2-10) H (None) Ur Culture Indicated? Specimen cultured Vol Urine Centrifuged 10ml (spun) Urine Dip Bedside Urine Glucose Negative Bedside Urine Bilirubin - Negative Bedside Urine Ketone - Negative Urine Specific [place] 1.020 Bedside Urine Occult Blood +++ Bedside Urine pH 6 Bedside Urine Protein + 30 Bedside Urine Urobilinogen - Negative Bedside Urine Nitrite + Positive Bedside Urine Leukocytes +++ 500 Esterase Point of care testing: Urine Dip Bedside Urine Glucose Negative Bedside Urine Bilirubin - Negative Bedside Urine Ketone - Negative Urine Specific [place] 1.020 Bedside Urine Occult Blood +++ Bedside Urine pH 6 Bedside Urine Protein + 30 Bedside Urine Urobilinogen - Negative Bedside Urine Nitrite + Positive Bedside Urine Leukocytes +++ [address] scan - abdomen/pelvis: Radiologist's Impression: [address] [address] [address] Scan Report Signed Patient: Nam Pina MR#: [id number] : 1950 Acct:[id number] Age/Sex: 74 / M Date of Service: 05/04/25 Loc: ED Accession Number: [id number] Procedure: CT abdomen pelvis wo con Ordering Provider: Wesley Roach MD PROCEDURE: CT ABDOMEN PELVIS WO CON INDICATIONS: flank pain L, hx stones, hx bladder CA/stent TECHNIQUE: Axial sections were acquired from the lung bases to the pubic symphysis. Coronal and sagittal reformats were performed. For radiation dose reduction, the following was used: automated exposure control, adjustment of mA and/or kV according to patient size. COMPARISON: [facility], CT, CT ABDOMEN PELVIS W CON, 01/25/2025, 12:58. FINDINGS: Image quality: Diagnostic. Lower Chest: No significant findings. URINARY: Right Kidney: Unchanged nonobstructing calcification. Right Ureter: No hydroureter. Left Kidney: Ureterovesicular stent with minimal to mild hydronephrosis. Left Ureter: No hydroureter. Bladder: Normal wall thickness. No stones. Previous luminal mass is not seen on current exam. ABDOMEN: Liver: No contour-deforming solid mass. Steatosis. Gallbladder: No radiopaque gallstones or wall thickening. Biliary ducts: No biliary dilation. Pancreas: No ductal dilation. Spleen: Size is within normal limits. Adrenal Glands: No adrenal nodules. Stomach and Bowel: Normal colonic caliber, without significant wall thickening. Scattered diverticula without inflammatory change. Peritoneum: No abnormal intraperitoneal fluid. No free air. Ventral Wall: No hernia. Abdominal Nodes: No enlarged retroperitoneal or mesenteric lymph nodes. Vessels: Aorta and inferior vena cava are normal in size. PELVIS: Pelvic Organs: Unremarkable. Pelvic Nodes: Unremarkable. Miscellaneous: No inguinal hernias are seen. Bones: Unremarkable. IMPRESSION: No obstructing stones. Left ureterovesicular stent with mild appearance hydronephrosis. Dictated by: Emily Chan M.D. on 05/05/2025 at 1:02 Approved by: Emily Chan M.D. on 05/05/2025 at 1:05 [facility] Narrative Medical decision making narrative: 74-year-old male with history of kidney stones prior lithotripsies, last lithotripsy 2 years ago, more recently has diagnosis bladder cancer, motor stent placed local urologist Dr. Alexander, bladder excision mass removed, another noncancerous mass apparently removed in March, awaiting BCG placement surgery with possible bladder stent removal in 2 days 10:[address] Alexander. Now with 2 weeks duration left flank pain, increasing last couple of days, further increased today. He does not want opiate medication. Willing to have IV Toradol which was ordered. Upcoming surgical intervention, we will CT abdomen and pelvis to help surgical planning. Patient and in agreement. Keep NPO. Lab data: White blood cell count 46895, hemoglobin 13.7, platelets adequate. Glucose 110. BUN 18 with creatinine 1.27. Normal serum CO2. Sodium 135 with normal potassium 3.9. Liver functions normal. Lipase normal. Urinalysis with some pyuria and little bacteria, urine culture triggered. Feels better after pain medication given. IV Ceftriaxone for UTI coverage. CT abdomen and pelvis. Shows no obstructing stones. Left ureterovesicular stent in place with mild hydronephrosis appearance. See radiology report. Urinalysis suspicious for infection, triggered urine culture by protocol. We will give oral cefdinir dose, sent prescription to their pharmacy. Follow up with Urology in 2 days as planned. Discharged home with . Discharge Plan Departure Patient Disposition: Home Clinical Impression: Urinary tract infection Activity Restrictions/Additional Instructions: History of previous kidney stones. More recent diagnosis of bladder cancer status post bladder stenting and mass excisions, awaiting next procedure in 2 days with local urologist, for likely BCG treatment and bladder stent removal procedure. Urinalysis tonight suspicious for infection, IV ceftriaxone antibiotic given. CT scan did not show any kidney stones blocking either ureter at this time to explain any discomfort. Left-sided ureterovesicular stent was in place. We will give further antibiotics for treatment of urinary tract infection. Contact your urologist to let him know about urine infection if that should change the trajectory of your surgery on Saturday or not. Return earlier to this/nearest emergency department for any change worsening symptoms or any concerns prior. Prescriptions: New cefdinir 300 mg capsule 300 mg PO BID 10 Days Qty: 14 0RF No Action amlodipine 5 mg tablet 5 mg PO DAILY levofloxacin 500 mg tablet 500 mg PO DAILY Qty: 5 0RF oxycodone 5 mg tablet 5 mg PO Q8H PRN (Reason: pain (scale score 7-10)) Qty: 7 0RF oxybutynin chloride 5 mg tablet 5 mg PO TID PRN (Reason: bladder spasms) Qty: 10 0RF tamsulosin 0.4 mg capsule 0.4 mg PO ONCE PM Qty: 90 3RF Referrals: Kwaku Alexander DO [Physician, Urology] Stand Alone Forms: Patient Portal/API
[2025-05-04 22:56] LABS: Alanine Aminotransferase 29 IU/L (<50); Albumin 3.7 g/dL (3.5-5.0); Alkaline Phosphatase 80 U/L (38-126); Aspartate Aminotransferase 28 IU/L (17-59); BUN Creatinine Ratio 14.2 (6-22); Bilirubin Total 0.6 mg/dL (0.2-1.3); Blood Urea Nitrogen 18 mg/dL (9-20); Calcium 8.5 mg/dL (8.4-10.2); Carbon Dioxide 24 mmol/L (22-32); Chloride 104 mmol/L (98-107); Estimated Glomerular Filt Rate > 60 mL/min (>60); Globulin 3.7 g/dL (1.7-4.1); Glucose 110 mg/dL (70-99); HEMOLYSIS < 15 (0-50); Lipase 88 U/L (23-300); Potassium 3.9 mmol/L (3.4-5.1); Sodium 135 mmol/L (137-145); Total Protein 7.4 g/dL (6.3-8.2)
[2025-05-04] MEDS: KETOROLAC 30 MG/ML VIAL 15 MG IV (23:12)
[2025-05-04] MEDS: cefTRIAXone 1,000 MG in SODIUM CHLORIDE 0.9% 100 ML 200 MG IV (23:12)
--- NOTE | 2025-05-04 23:48 | DI.CT.S_ITS ---
PROCEDURE: CT ABDOMEN PELVIS WO CON INDICATIONS: flank pain L, hx stones, hx bladder CA/stent TECHNIQUE: Axial sections were acquired from the lung bases to the pubic symphysis. Coronal and sagittal reformats were performed. For radiation dose reduction, the following was used: automated exposure control, adjustment of mA and/or kV according to patient size. COMPARISON: [facility], CT, CT ABDOMEN PELVIS W CON, 01/25/2025, 12:58. FINDINGS: Image quality: Diagnostic. Lower Chest: No significant findings. URINARY: Right Kidney: Unchanged nonobstructing calcification. Right Ureter: No hydroureter. Left Kidney: Ureterovesicular stent with minimal to mild hydronephrosis. Left Ureter: No hydroureter. Bladder: Normal wall thickness. No stones. Previous luminal mass is not seen on current exam. ABDOMEN: Liver: No contour-deforming solid mass. Steatosis. Gallbladder: No radiopaque gallstones or wall thickening. Biliary ducts: No biliary dilation. Pancreas: No ductal dilation. Spleen: Size is within normal limits. Adrenal Glands: No adrenal nodules. Stomach and Bowel: Normal colonic caliber, without significant wall thickening. Scattered diverticula without inflammatory change. Peritoneum: No abnormal intraperitoneal fluid. No free air. Ventral Wall: No hernia. Abdominal Nodes: No enlarged retroperitoneal or mesenteric lymph nodes. Vessels: Aorta and inferior vena cava are normal in size. PELVIS: Pelvic Organs: Unremarkable. Pelvic Nodes: Unremarkable. Miscellaneous: No inguinal hernias are seen. Bones: Unremarkable. IMPRESSION: No obstructing stones. Left ureterovesicular stent with mild appearance hydronephrosis. Dictated by: Emily Chan M.D. on 05/05/2025 at 1:02 Approved by: Emily Chan M.D. on 05/05/2025 at 1:05
[2025-05-05] VITALS: BP 166/82; PULSE 61; O2SAT 97
[2025-05-05 00:30] VITALS: PULSE 58; O2SAT 96
[2025-05-05 01:00] VITALS: PULSE 57; O2SAT 98
[2025-05-05 01:30] VITALS: PULSE 61; O2SAT 99
[2025-05-05 01:33] VITALS: BP 149/67; PULSE 60; O2SAT 98
[2025-05-05 01:59] VITALS: BP 173/82; PULSE 58; O2SAT 99
== END 2025-05-05 02:11 | disposition home or self-care (01) ==
PROVIDERS: Emergency Provider Emergency Medicine
DX: N39.0 Urinary tract infection, site not specified (principal); C67.9 Malignant neoplasm of bladder, unspecified; Z87.442 Personal history of urinary calculi; Z87.898 Personal history of other specified conditions
CPT/HCPCS: 36415; 74176; 80053; 81003; 81015; 83690; 85025; 87077; 87086; 87186; 96365; 96375; 99284; J0696; J1885

== ENCOUNTER → 2025-05-13 10:02 | Outpatient (CLI) | payer OTHER, SELFPAY | PROVIDERS: Visit Provider Urology | DX: N39.0 Urinary tract infection, site not specified (principal) | CPT/HCPCS: 87086 ==

== ENCOUNTER → 2025-05-20 09:01 | Outpatient (CLI) | payer OTHER, SELFPAY | PROVIDERS: Visit Provider Urology | DX: C67.9 Malignant neoplasm of bladder, unspecified (principal); N40.1 Benign prostatic hyperplasia with lower urinary tract symptoms; N13.8 Other obstructive and reflux uropathy | CPT/HCPCS: 51720; 81002; 87086; J9171; J9201 ==

== ENCOUNTER → 2025-05-27 09:15 | Outpatient (CLI) | payer OTHER, SELFPAY | PROVIDERS: Visit Provider Urology | DX: N40.1 Benign prostatic hyperplasia with lower urinary tract symptoms (principal); N13.8 Other obstructive and reflux uropathy | CPT/HCPCS: 87086; 87186 ==

== ENCOUNTER → 2025-09-10 09:03 | Outpatient (CLI) | payer OTHER, SELFPAY | PROVIDERS: Visit Provider Urology | DX: C67.9 Malignant neoplasm of bladder, unspecified (principal); N40.1 Benign prostatic hyperplasia with lower urinary tract symptoms; N13.8 Other obstructive and reflux uropathy | CPT/HCPCS: 51720; 81002; 87077; 87086; 87147; J9171; J9201 ==